=== PATIENT | male | born 1950 | race Two or more races ===

== ENCOUNTER 2021-10-23 13:29 | Emergency (ER) | payer MEDICARE, MEDICAID, SELFPAY | END 2021-10-23 13:45 | disposition left against medical advice (07) | PROVIDERS: Emergency Provider Emergency Medicine; PCP Internal Medicine | DX: M79.642 Pain in left hand (principal) ==

== ENCOUNTER 2021-10-23 14:46 | Outpatient (REF) | payer MEDICARE, MEDICAID, SELFPAY ==
--- NOTE | ~2021-10-23 | XR_ITS ---
EXAMINATION: XR HAND, LEFT CLINICAL INFORMATION: Left hand pain COMPARISON: None TECHNIQUE: PA, lateral, and oblique views of the left hand. FINDINGS: No fracture or dislocation. Alignment is maintained. Joint spaces are maintained. Mild dorsal soft tissue swelling. Mild narrowing of the first carpometacarpal joint space with sclerosis. XR/XR hand LT 2V IMPRESSION: No acute osseous abnormality. Mild degenerative change, particularly at the first carpometacarpal joint.
== END 2021-10-23 14:47 | disposition home or self-care (01) ==
LOC: HO.HMGCX 14:46
PROVIDERS: Visit Provider Family Medicine
DX: M79.642 Pain in left hand (principal)
CPT/HCPCS: 73120

== ENCOUNTER 2022-03-27 10:00 | Outpatient (REF) | payer MEDICARE, MEDICAID, SELFPAY | END 2022-03-27 10:01 | disposition home or self-care (01) | LOC: HO.SH 10:00 | PROVIDERS: PCP Family Medicine; Visit Provider Family Medicine | DX: Z01.118 Encounter for examination of ears and hearing with other abnormal findings (principal); H90.3 Sensorineural hearing loss, bilateral | CPT/HCPCS: 92557; 92567 ==

== ENCOUNTER 2022-04-10 09:50 | Outpatient (REF) | payer MEDICARE, MEDICAID, SELFPAY ==
--- NOTE | 2022-04-10 10:50 | MHC.AU.HA1 ---
Hearing Aid Evaluation Date of Visit: 04/10/22 Historical Information: Description of Hearing: Right- Normal from 250-2000 Hz, steeply sloping to moderately-severe by 3000 Hz, and rising to mild sensorineural hearing loss Left- Normal from 250-1500 Hz, steeply sloping to severe sensorineural hearing loss Summary: Patient was initially seen at our clinic on 03/27/2022 for an audiological evaluation. He was diagnosed with asymmetrical sensorineural hearing loss. He was seen by [facility] on 04/02/2022 and given medical clearance for hearing aids. He will also be getting an MRI. Hearing aid options were discussed. He reports that a main concern for him is being able to hear his . Hearing Aid Prescription: Based on the individual?s shared listening needs, communication environments, dexterity, desire for connectivity, and personal preferences, the following prescription for amplification has been made: Right ear: Make, Model, Color: Phonak Audeo P70-R, Black Battery Size: Rechargeable Top Frame Fitter/Slim Tube: 1M Left ear: Make, Model, Color: Phonak Audeo P70-R, Black Battery Size: Rechargeable Top Frame Fitter/Slim Tube: 1M Action Taken/Action Needed: Hearing Instrument Fitting to be scheduled when materials arrive Primary Diagnosis: H90.3 Bilateral Sensorineural Hearing Loss Signature: Provider: Gabriel Angeles, [facility]
== END 2022-04-10 09:51 | disposition home or self-care (01) ==
LOC: HO.HAP 09:50
DX: Z46.1 Encounter for fitting and adjustment of hearing aid (principal); H90.3 Sensorineural hearing loss, bilateral
CPT/HCPCS: 92591

== ENCOUNTER 2022-05-05 09:44 | Outpatient (REF) | payer MEDICARE, MEDICAID, SELFPAY | END 2022-05-05 09:45 | disposition home or self-care (01) | LOC: HO.HAP 09:44 | PROVIDERS: Visit Provider Otolaryngology | DX: Z46.1 Encounter for fitting and adjustment of hearing aid (principal); H90.3 Sensorineural hearing loss, bilateral | CPT/HCPCS: V5011; V5020; V5160; V5261 ==

== ENCOUNTER 2022-06-05 09:33 | Outpatient (REF) | payer MEDICARE, MEDICAID, SELFPAY | END 2022-06-05 09:34 | disposition home or self-care (01) | LOC: HO.HAP 09:33 | PROVIDERS: Visit Provider Otolaryngology | DX: Z46.1 Encounter for fitting and adjustment of hearing aid (principal); H90.3 Sensorineural hearing loss, bilateral | CPT/HCPCS: V5275 ==

== ENCOUNTER 2022-07-10 08:18 | Outpatient (REF) | payer MEDICARE, MEDICAID, SELFPAY ==
--- NOTE | 2022-07-10 08:58 | MHC.AU.HFU ---
Hearing Instrument Follow-Up- Binaural Date of Visit: 07/10/22 Right Ear: Phonak Nielseo L70-R, SN: [id number], Black Repair Warranty: 07/08/2025 Loss and Damage Warranty: 07/08/2025 Service Plan: 05/06/2023 Battery Size: Rechargeable Medical Csr: 1M Type of Mold: Cshell w/canal lock, SN: [id number], warranty: 09/14/2022 Type of Wax Guard: Cerustop Dispensed By: [facility] Date of Fittin05/05/2022 Left Ear: Phonak Nielseo L70-R, SN: [id number], Black Repair Warranty: 07/08/2025 Loss and Damage Warranty: 07/08/2025 Service Plan: 05/05/2022 Battery Size: Rechargeable Medical Csr: 1M Type of Mold: Cshell w/canal lock, SN: [id number], warranty: 09/14/2022 Type of Wax Guard: Cerustop Dispensed By: [facility] Date of Fittin05/05/2022 Follow-Up Summary: The patient is here today for a cshell mold fitting. New cshells fit well bilaterally. I reprogrammed the acoustic settings in [employer] to reflect the new cshells and re-ran the feedback evs manager. No feedback noted. The patient reported a comfortable fit and good volume bilaterally. We reviewed cleaning and hearing aid care with the new cshells. I re-paired the hearing aids to the patient's Android phone as he was having trouble pairing them. It worked fine in office. Additional follow-up as needed or in 1 year for maintenance. Billed to insurance today. Diagnosis Code(s): Primary Diagnosis: H90.3 Bilateral Sensorineural Hearing Loss Signature: Provider: Niels Carvalho, CCC-A
== END 2022-07-10 08:19 | disposition home or self-care (01) ==
LOC: HO.HAP 08:18
PROVIDERS: Visit Provider Family Medicine
DX: Z46.1 Encounter for fitting and adjustment of hearing aid (principal); H90.3 Sensorineural hearing loss, bilateral
CPT/HCPCS: V5264

== ENCOUNTER 2024-03-23 08:05 | Outpatient (REF) | payer MEDICARE, SELFPAY ==
--- NOTE | ~2024-03-23 | XR_ITS ---
CLINICAL HISTORY: RT HIP PAIN 2 view, pelvis and right hip Comparison: None Findings: The bones are intact. No significant arthritic change. The soft tissues are unremarkable. There is regional arterial calcification. IMPRESSION: No acute findings. This document has been electronically signed by: Pito Thompson MD on 03/26/2024 08:49:25
--- NOTE | ~2024-03-23 | XR_ITS ---
CLINICAL HISTORY: LOWER BACK PAIN 3 views lumbar spine Comparison: DX - XR LUMBAR SPINE 2-3V - 03/23/2024 02:42 PM EST Findings: Normal alignment. No acute fractures or dislocation. Multiple level degenerative disc and facet change. IMPRESSION: No acute findings. This document has been electronically signed by: Pito Thompson MD on 03/26/2024 08:51:06
--- NOTE | ~2024-03-23 | XR_ITS ---
CLINICAL HISTORY: RT KNEE PAIN 3 view right knee Comparison: None Findings: Bones intact. No dislocations. Components of the prosthesis are intact and well-positioned. No significant loss of joint space, osteophytes, or erosions. No joint effusion. No other radiopaque foreign body. IMPRESSION: 1. No acute findings. This document has been electronically signed by: Pito Thompson MD on 03/26/2024 08:49:34
== END 2024-03-23 08:06 | disposition home or self-care (01) ==
LOC: HO.HOSX 08:05
PROVIDERS: Visit Provider Orthopaedic Surgery
DX: M25.561 Pain in right knee (principal); M25.551 Pain in right hip; M54.50 Low back pain, unspecified; M79.604 Pain in right leg
CPT/HCPCS: 72100; 73502; 73562; 99202

== ENCOUNTER 2024-03-23 14:24 | Outpatient (AMB) | payer MEDICARE, SELFPAY ==
--- NOTE | 2024-03-23 14:40 | MHC.OFFVIS ---
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 The patient did undergo right total knee replacement surgery at [facility] approximately 6 years ago. He denies any fevers or chills. He has tried Tylenol and anti-inflammatory medicines which gave him minimal relief. He has also done physical therapy which aggravated his pain. He reports intermittent weakness in his right leg. The patient states that he did undergo surgery on his neck approximately 10 years ago. He has taken oxycodone as well which gives him minimal relief. Dog Warden Required: No Allergies almond Allergy (Severe, Unverified 03/23/24 14:41) SWELLING nut - unspecified [nut] Allergy (Severe, Unverified 03/23/24 14:41) SWELLING peanut [Peanut] Allergy (Severe, Unverified 03/23/24 14:41) SWELLING walnut Allergy (Severe, Unverified 03/23/24 14:41) SWELLING strawberry [[place]] Allergy (Mild, Unverified 03/23/24 14:41) UNKNOWN apple [Apple] Allergy (Unknown, Unverified 03/23/24 14:41) UNKNOWN Medication List - Last Reconciled 03/23/24 by Francisco Javier Freeman MD amlodipine 5 mg PO DAILY diclofenac sodium 1% topical omeprazole 20 mg PO DAILY oxybutynin chloride ER 10 mg PO DAILY oxycodone-acetaminophen 5-325 mg tabs [facility] Social History (Updated 03/23/24 @ 15:01 by MENDEZ Locke) Patient Tobacco Use Status: Former Tobacco user Current occupational status: retired Current occupation: rt handed Physical Exam Vital Signs: BMI result Body Mass Index 37.2 Const Other: Well-nourished well-developed very friendly male awake alert and oriented x3 in no acute distress Back/Spine/Pelvis Other: Low back examination shows right-sided paraspinal muscle tenderness, pain with range of motion, positive straight leg raise test on the right at 70 degrees, 4/5 strength with testing of his right hip flexors and knee extensors when compared to 5/5 strength on his left side Extrem Other: Right knee examination shows that the surgical incision is well healed, no erythema, full active extension and flexion to 120 degrees, his patella tracks well Right hip examination shows full range motion when compared to his left hip, no tenderness over his bursa Results Reviewed Results Reviewed: X-rays of the patient's right knee show a total knee arthroplasty in good position with no signs of loosening, no acute bony abnormalities X-rays of the patient's right hip show mild diffuse joint space narrowing, no acute bony abnormalities X-rays of the patient's lumbar spine show diffuse degenerative disc disease, no acute bony abnormalities Assessment & Plan Assessment & Plan (1) Low back pain radiating to right leg: Code(s): M54.50 - Low back pain, unspecified; M79.604 - Pain in right leg Category: Medical (2) Right knee pain: Code(s): M25.561 - Pain in right knee Category: Medical (3) Low back pain: Code(s): M54.50 - Low back pain, unspecified Category: Medical (4) Right hip pain: Code(s): M25.551 - Pain in right hip Category: Medical Plan Mr. Cazares presents with low back pain which radiates down his right leg as well as associated right leg weakness possibly due to lumbar stenosis or a disc herniation. Thus, I will send the patient for an MRI of his lumbar spine for further evaluation. I will contact him by phone once the MRI results are available. I will also arrange for him to have a follow-up appointment with Dr. Medeiros from our pain management department to see if he is a candidate for a nerve stimulation procedure to help with his right knee pain. The patient will follow-up as instructed. Feel free to call me at any time should questions regarding his orthopedic management arise. I spent 20 minutes in reviewing the patient's records and imaging studies, seeing the patient and documenting in the medical record. Orders: Orders XR hip RT min 2V 03/23/24 M25.551 - Pain in right hip XR lumbar spine 2-3V 03/23/24 M54.50 - Low back pain, unspecified MR lumbar spine wo con 03/23/24 M54.50 - Low back pain, unspecified, M79.604 - Pain in right leg XR knee RT 3V 03/23/24 M25.561 - Pain in right knee Referrals Pain Management Referral M25.561 - Pain in right knee Coding Level of Care Code New Pt Level 3 (99652) Complex EM visit Add On G2211 Diagnoses Low back pain radiating to right leg M54.50; M79.604 Right knee pain M25.561 Low back pain M54.50 Right hip pain M25.551
[2024-03-23 14:59] VITALS: BMI 37.2
--- OUTSIDE RECORDS SUMMARY | 2024-03-23 16:46 | XMS_ITS | Clinical Summary ---
Author Organization [facility] Address [address] [place] [address] Care Team Providers Care Research Agricultural Engineer Name Role Phone Sofiya Seaman MD Primary Care Provider [phone] Allergies Active Allergy Reactions Criticality Noted Date Comments Fruit 03/15/2014 Nuts 03/15/2014 Medications Medication Sig Dispensed Refills Start Date End Date Status oxyCODONE-acetaminoph en (PERCOCET) 5-325 MG per tablet TK 1 TO 2 TS PO Q 8 H PRN P 0 02/16/2019 Active oxybutynin (DITROPAN XL) 15 MG 24 hr tablet 0 03/04/2019 Active aspirin EC 81 MG tablet Take 81 mg by mouth daily. 0 Active amLODIPine (NORVASC) tablet 5 mg Take 5 mg by mouth. 0 09/01/2019 Acti ve Aspirin Buf,AxOjxy-VxZhjz-TcI , 81 MG TABS Take 81 mg by mouth. 0 Active diazePAM (VALIUM) tablet 5 mg TK 1 T PO HS THE NIGHT BEFORE PROCEDURE AND 1 T 1 HOUR PRIOR TO PROCEDURE 0 08/29/2019 Active naproxen (NAPROSYN) 500 MG tablet Take 500 mg by mouth. 0 10/14/2018 Active omeprazole (PriLOSEC) 20 MG capsule Take 20 mg by mouth. 0 06/07/2019 Active Active Problems Problem Noted Date Diagnosed Date Labral tear of shoulder, left, sequela 0 Traumatic complete tear of left rotator cuff Labral tear of shoulder, left, initial encounter 03/16/2019 Impingement syndrome of left shoulder 03/16/2019 Traumatic complete tear of left rotator cuff Family History Medical History Relation Name Comments Arthritis Mother Heart disease Sister Hypertension Sister Relation Name Status Comments Mother Sister Social History Tobacco Use Types Packs/Day Years Used Date Smoking Tobacco: Former Cigarettes 0 1962 - 03/02/1992 Smokeless Tobacco: Never Alcohol Use Standard Drinks/Week Comments No 0 (1 standard drink = 0.6 oz pur e alcohol) quit 03/02/1992 Sex and Gender Information Value Date Recorded Sex Assigned at Not on file Gender Identity Not on file Sexual Orientation Not on file Job Start Date Occupation Industry Not on file Not on file Not on file Last Filed Vital Signs Vital Sign Reading Time Taken Comments Blood Pressure - - Pulse - - Temperature - - Respiratory Rate - - Oxygen Saturation - - Inhaled Oxygen Concentration - - Weight 99.8 kg (220 lb) 04/04/2019 9:04 AM EST Height 160 cm (5' 3 ) 04/04/2019 9:04 AM EST Body Mass Index 38.97 04/04/2019 9:04 AM EST Plan of Treatment Health Maintenance Due Date Last Done Comments Hepatitis C Screening 1950 COVID-19 Vaccine (#1) 02/10/1951 Depression Screening 1962 BMI Counseling 1968 Preventative Health Evaluation 1968 Colon Cancer Screening (Colonoscopy) 08/12/1995 Shingrix-Zoster Vaccine (1 of 2) 2000 Fall Risk Assessment 08/12/2015 DTap / Tdap / Td (2 - Td or Tdap) 05/13/2020 05/13/2010 Influenza Vaccine (#1) 2023 0, 12/21/2018, 01/05/2018, Additional history exists RSV Adult > 60+ Yrs or (1 - 1-dose 75+ series) 2025 Pneumococcal Vaccine Completed 03/08/2019, 09/10/2016, 03/15/2013 Hepatitis B Vaccines Aged Out No long er eligible based on patient's age to complete this topic RSV Ped < 20 months Aged Out No longe r eligible based on patient's age to complete this topic Care Teams Research Agricultural Engineer Relationship Specialty Start Date End Date Sofiya Seaman MD PCP - General Internal Medicine 03/09/19
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
== END 2024-03-23 15:18 | disposition home or self-care (01) ==
PROVIDERS: Visit Provider Orthopaedic Surgery
DX: M54.50 Low back pain, unspecified (principal); M79.604 Pain in right leg; M25.561 Pain in right knee; M25.551 Pain in right hip
CPT/HCPCS: 99203; G2211

== ENCOUNTER → 2024-03-28 07:20 | Outpatient (BNV) | payer MEDICARE, SELFPAY | PROVIDERS: PCP Family Medicine; Visit Provider Radiology Diagnostic Radiology | DX: M54.50 Low back pain, unspecified (principal) | CPT/HCPCS: 72148 ==

== ENCOUNTER 2024-03-28 07:23 | Outpatient (REF) | payer MEDICARE, SELFPAY ==
--- NOTE | ~2024-03-28 | MR_ITS ---
EXAMINATION: MR LUMBAR SPINE WITHOUT IV CONTRAST History: M54.50 - Low back pain, unspecified Technique: Sagittal T1, T2 and STIR, and axial T1 and T2 weighted images of the lumbar spine were obtained per departmental protocol. Comparison: Correlation is made with plain films of the lumbar spine dated 03/23/2024. Findings: The vertebral bodies maintain normal height, alignment, and marrow signal intensity. There is mild degenerative disc disease of the upper lumbar spine with disc desiccation, loss of disc height, and anterior osteophyte formation. At T12-L1,there is no evidence of disc herniation, central spinal stenosis, or neural foraminal narrowing. At L1-2, there is a mild disc bulge. There is no central spinal or neural foraminal stenosis. At L2-3, there is a mild disc bulge. There is mild facet and ligamentum flavum hypertrophy without central spinal or neural foraminal stenosis. At L3-4, there is a mild disc bulge which is asymmetric to the left. There is facet and ligamentum flavum hypertrophy causing narrowing of the inferior recess of the left neural foramen. There is no central spinal or right neural foraminal stenosis. At L4-5, there is a mild diffuse disc bulge. There is mild facet osteoarthritis causing bilateral neural foraminal stenosis, left greater than right. At L5-S1, there is facet osteoarthritis causing bilateral neural foraminal stenosis, right greater than left. The conus terminates at the T12-L1 level and demonstrates normal signal intensity. The visualized paraspinal soft tissues are unremarkable. MR/MR lumbar spine wo con Impression: Degenerative changes of the lumbar spine as described. Electronically signed by: Amarjit Neal MD 03/28/2024 11:24 AM BESSY
--- OUTSIDE RECORDS SUMMARY | 2024-03-28 07:25 | XMS_ITS | Clinical Summary ---
Author Organization [place] [id number] [facility] Address [address] [place] [id number] Phone Care Team Providers Care Peeled Potato Inspector Name Role Phone Lorie Samuel MD Primary Care Pr ovider Allergies Active Allergy Reactions Criticality Noted Date Comments Nut - Unspecified 03/15/2014 Other 03/15/2014 Medications Medication Sig Dispensed Refills Start Date End Date Status fluticasone propionate (FLONASE) 50 mcg/actuation nasal spray 1 [place] by Nasal route 2 times daily., Disp-48 [...] Max Daily Amount: 2 tablets 56 tablet 03/24/2024 5 Active oxyCODONE-acetamino phen (PERCOCET) 5-325 mg per tablet Take 1 tablet by mouth every 12 (twelve) hours for 28 days. DX CODE: M47.816 -Partial fill okay upon patient request Max Daily Amount: 2 tablets 56 tablet 02/05/2024 5 Discontinue d(Reorder) oxyCODONE-acetamino phen (PERCOCET) 5-325 mg per tablet Take 1 tablet by mouth every 12 (twelve) hours for 28 days. DX CODE: M47.816 -Partial fill okay upon patient request Max Daily Amount: 2 tablets 56 tablet 03/11/2024 5 Discontinue d(Reorder) Active Problems Problem Noted Date Diagnosed Date Osteoarthritis of thoracic spine with myelopathy 11/11/2023 Dyslipidemia 11/04/2023 Chronic rhinitis 11/04/2023 Traumatic brachial plexopathy 07/10/2023 Overview (12/14/2023): Last Assessment & Plan: Mr. Cazares describes a fall from a ladder in 2018 resulting in an anterior dislocation of the left shoulder that was manually reduced. Since that time he has had pain, numbness, and tingling in the left shoulder, into the triceps, ulnar forearm and involving the whole left hand. 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 His MRI of the cervical spine from [facility] on May 26, 2023 reveals a [...] An EMG and nerve conduction study from [facility] in 2019 revealed evidence of a left brachial plexus [...] not using it Supply letter given to [facility] to fax. Return to clinic [...] HERNIA REPAIR/ING UPPER GASTROINTESTINAL ENDOSCOPY 09/07/2008 PROCEDURE: [place] UPPER GI ENDOSCOPY PERFORMED; COMMENT: [facility]; esophagus normal, gastritis. Biopsy for rapid tissue urease testing positive for H. pylori that was subsequently treated. UPPER GASTROINTESTINAL ENDOSCOPY 09/27/2009 PROCEDURE: [place] UPPER GI ENDOSCOPY PERFORMED; COMMENT: [facility]; esophagus normal, biopsy of gastritis for rapid tissue urease testing. UPPER GASTROINTESTINAL ENDOSCOPY 05/18/2012 PROCEDURE: [place] UPPER GI ENDOSCOPY PERFORMED; COMMENT: [facility], esophagus normal, patchy erythema of stomach biopsied, rapid tissue urease testing performed. TOTAL KNEE ARTHROPLASTY PROCEDURE: [place] ARTHRP KNE CONDYLE&PLATU MEDIAL&LAT COMPARTMENTS; COMMENT: right COLONOSCOPY 06/13/2020 N/A PROCEDURE: HISTORICAL COLONOSCOPY; COMMENT: 3 cm sessile mass lesion in the cecum adjacent to the appendix, pathology: SHOULDER SURGERY 08/2020 Left PROCEDURE: HISTORICAL SHOULDER SURGERY OTHER SURGICAL HISTORY 04/18/2021 Right PROCEDURE: ---- OTHER ----; COMMENT: colectomy OTHER SURGICAL HISTORY 06/19/2022 PROCEDURE: [place] ANES LWR ABD VENTRAL & INCISIONAL HERNIA [...] Upcoming Encounters Date Type Department Care Team (Late st Contact Info) Description 03/28/2024 9:00 AM EST Office Visit Pulmonolgy - [place] [address] [place] [id number] Susan Castillo MD [address] [facility] [address] [place] [address] 04/04/2024 5:00 PM EST Office Visit Adult Medicine [facility] [address] [place] [address] Lorie Samuel MD [address] [place] [id number] Health Maintenance Due Date Last Done Comments Zoster Vaccines (1 of 2) 2000 RSV Immunization Patients 60+ Years Old (1 - Risk 60-74 years 1-dose series) 2010 Medicare Annual Wellness Visit 02/06/2022 Social Influencers of Health Screening 02/06/2022 COVID-19 [...] other levels as detailed. 8 [place] [facility] MRI PROCEDURES * Annual BMP Blood Test (11/05/2023) Annual BMP Blood Test Abstracted Historical Provider MD NATALIA CENTENO E * Lipid panel (11/05/2023) [facility] LDL/HDL Ratio 3 0 - 4 Triglycerides 68 0 - 150 mg/dL Cholesterol 111 0 - 200 mg/dL HDL 43 40 mg/dL LDL Cholesterol 55 0 - 100 mg/dL Blood Venous blood specimen / Unknown Historical Provider LAB BLOOD ORDERAB LES * Falls Risk Assessment (05/07/2023) [facility] Falls Risk Assessment Abstracted Historical Provider [facility] * Depression Screening (05/07/2023) [facility] Depression Screening Abstracted [facility] Provider [facility] [employer] [facility] * Abdominal Aortic Aneurysm Screen (07/23/2021) [facility] Abdominal Aortic Aneurysm (AAA) Screening Abstracted Anatomical Region Laterality Modality Other Historical Provider [facility] * Colonoscopy (05/01/2021) [facility] Colonoscopy No Interpretation , Abstracted Anatomical Region Laterality Modality Other [facility] Provider [facility] * Hepatitis C Screening (03/16/2014) [facility] Hepatitis C Screening Abstracted Historical Provider [facility] from Last 3 Months or Most Recently Relevant to Health Maintenance Care Teams Peeled Potato Inspector Relationship Specialty Start Date End Date Lorie Samuel MD [address], [place] PCP - General Internal Medicine 12/02/21"
--- OUTSIDE RECORDS SUMMARY | 2024-03-28 07:25 | XMS_ITS | Clinical Summary ---
[facility] Organization [facility] Address [address] [place] [address] Care Team Providers Care Inside Parts Sales Name Role Phone Sofiya Seaman MD Primary Care Provider [phone] Allergies Active Allergy Reactions Criticality Noted Date [...] by mouth. 0 09/01/2019 Acti ve Aspirin Buf,[id number] , 81 MG TABS Take 81 mg [...] age to complete this topic Care Teams Inside Parts Sales Relationship Specialty Start Date End Date Sofiya Seaman MD PCP - General Internal Medicine 03/09/19
== END 2024-03-28 07:24 | disposition home or self-care (01) ==
LOC: HO.MRI 07:23
PROVIDERS: PCP Family Medicine; Visit Provider Orthopaedic Surgery
DX: M54.50 Low back pain, unspecified (principal); M79.604 Pain in right leg
CPT/HCPCS: 72148

== ENCOUNTER 2024-06-03 10:04 | Outpatient (AMB) | payer MEDICARE, SELFPAY ==
--- NOTE | 2024-06-03 10:18 | MHC.OFFVIS ---
Vital Signs 06/03/24 10:21 Height 5 ft 3 in Weight 216 lb BMI 38.3 BP 129/70 Blood Pressure Location Lt brachial Position Sitting Respiration 16 Pulse 57 Pulse Source Pulse Oximeter Pulse Oximetry (%) 96 Oxygen Delivery Method Room Air Intake Visit Reasons: Right Leg/Knee Pain Sample Sewer Required: No Allergies almond Allergy (Severe, Verified 06/03/24 10:22) SWELLING nut - unspecified [nut] Allergy (Severe, Verified 06/03/24 10:22) SWELLING peanut [Peanut] Allergy (Severe, Verified 06/03/24 10:22) SWELLING walnut Allergy (Severe, Verified 06/03/24 10:22) SWELLING strawberry [[place]] Allergy (Mild, Verified 06/03/24 10:22) UNKNOWN apple [Apple] Allergy (Unknown, Verified 06/03/24 10:22) UNKNOWN Medication List - Last Reconciled 06/03/24 by Mercedes Young LPN amlodipine 2.5 mg PO DAILY aspirin (Adult Aspirin Regimen) 81 mg PO DAILY atorvastatin 10 mg PO DAILY diclofenac sodium 1% topical omeprazole 20 mg PO DAILY oxybutynin chloride ER 10 mg PO DAILY oxycodone-acetaminophen 5-325 mg tabs PO tamsulosin 0.8 mg PO DAILY HPI HPI Right Leg/Knee Pain: Details: History of Present Illness The patient is a 73-year-old male presenting with chronic low back pain and post-knee arthroplasty pain in the right knee. The low back pain began years ago while he was employed and is characterized by a stabbing, eating sensation, with intensity often reaching 8-9/10. The pain tends to worsen in the afternoons but can be alleviated to some extent at rest. Past MRI findings indicate degenerative changes across several lumbar levels, primarily at L3-4 on the left and L1-2, 4-5 on the right, and L5-S1 on the left. He also encounters persistent right knee pain post-total arthroplasty, described as dull and aching, which is accentuated by physical activity. The knee sensation is concerning to the patient, feeling as though it might collapse under strain. Initial conservative treatments have been ineffective. 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 He is currently retired, practices moderate caffeine consumption, and relies on oxycodone for pain management. His pain levels disrupt sleep and daily routines, necessitating further intervention. Pain Description - Onset: Chronic low back pain began years ago; right knee pain commenced post-arthroplasty six years ago. - Quality & Character: Stabbing, eating sensation in the low back; dull, ever-present ache in the right knee. - Primary Location: Low back; right knee. - Radiation: Sciatica symptoms radiating down the legs. - Severity: Low back pain intensity 8-9/10, reduced to 5-6/10 with relaxation; right knee pain dull and consistent. - Exacerbating Factors: Low back pain worsens in the afternoons; knee pain worsens with activity. - Alleviating Factors: Back pain improves with rest. - Daily Interference: Impacts sleep quality and daily activities. Physical Exam - Musculoskeletal- No tenderness noted upon palpation around the right knee. Results - Imaging: MRI indicating multilevel degenerative changes with facet hypertrophy, pronounced at L3-4 left, L1-2 right, 4-5 right, and L5-S1 left. Pain Management - Affect: Pain disrupts sleep and daily activities. - Analgesia: Oxycodone 5-325 mg every two hours; pain intensity ranges 8-9/10, better with rest. - Adverse Effects: Not explicitly noted. - Activities of Daily Living: Pain inhibits normal sleep and daily functioning. 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 [facility] Social History (Updated 03/23/24 @ 15:01 by MENDEZ Locke) Patient Tobacco Use Status: Former Tobacco user Current occupational status: retired Current occupation: rt handed Physical Exam Vital Signs: Last Vital Signs Pulse 57 06/03/24 10:21 Resp 16 06/03/24 10:21 BP 129/70 06/03/24 10:21 Pulse Ox 96 06/03/24 10:21 Oxygen Delivery Method Room Air 06/03/24 10:21 BMI result Body Mass Index 38.3 Assessment & Plan Assessment & Plan (1) Chronic knee pain after total replacement of right knee joint: Code(s): M25.561 - Pain in right knee; G89.29 - Other chronic pain; Z96.651 - Presence of right artificial knee joint Category: Medical Plan Plan The management plan includes requesting authorization for a temporary saphenous nerve stimulator to alleviate chronic right knee pain following total knee arthroplasty, which has been recalcitrant to conservative measures. Potential benefits include substantial pain reduction with a procedure success rate of approximately 70%, with effects lasting 8 to 10 months. If insurance authorization is secured, the nerve stimulator will be placed and left for two months, providing a viable solution given the metallic nature of the knee replacement which limits other interventions. Consideration may be given to apply similar methods to address the patient's chronic low back pain in the future should this initial treatment prove efficacious. Patient was informed and verbally consented to the use of an ambient scribe for clinic note documentation during this visit. Discussion Notes During the visit, I discussed with the patient the chronic nature of his right knee pain post-arthroplasty and the limited treatment options due to the metallic components. I introduced and thoroughly explained the saphenous nerve stimulator, highlighting its potential relief for knee pain with a 70% success rate. I informed the patient that while we would begin by addressing his knee pain, similar options might be available for his chronic low back pain should the knee intervention prove beneficial. We reviewed risks, benefits, and alternatives associated with the procedure, emphasizing the importance of securing insurance approval. The patient agreed to proceed and was informed to expect follow-up contact regarding authorization. Patient Instructions - Await further contact regarding insurance approval for the nerve stimulator procedure. - Limit activities that exacerbate knee pain. - Continue current medication regimen as instructed. - Report any significant changes in pain intensity or new symptoms promptly. - Follow care instructions for the nerve stimulator once placed, especially avoiding pools. - Contact the office with any questions or concerns regarding the procedure or insurance process. Coding Level of Care Code New Pt Level 4 (80459) Diagnoses Chronic knee pain after total replacement of right knee joint M25.561; G89.29; Z96.651
[2024-06-03 10:21] VITALS: BP 129/70; PULSE 57; RESP 16; O2SAT 96; BMI 38.3
--- OUTSIDE RECORDS SUMMARY | 2024-06-03 11:23 | XMS_ITS | Clinical Summary ---
Author Organization [facility] Address [address] [place] [address] Care Team Providers Care Ambulatory Service Representative Name Role Phone Sofiya Seaman MD Primary Care Provider [phone] Allergies Active Allergy Reactions Criticality Noted Date [...] by mouth. 0 09/01/2019 Acti ve Aspirin Buf,[id number] , 81 MG TABS Take 81 mg [...] age to complete this topic Care Teams Ambulatory Service Representative Relationship Specialty Start Date End Date Sofiya Seaman MD PCP - General Internal Medicine 03/09/19
--- OUTSIDE RECORDS SUMMARY | 2024-06-03 11:23 | XMS_ITS | Clinical Summary ---
Author Organization [facility] [address] [place] [address] [place] [phone] Phone Care Team Providers Care Firmware Engineer Name Role Phone Lorie Samuel MD Primary Care Pr ovider Allergies Active Allergy Reactions Criticality Noted Date Comments Fruit Extracts 03/15/2014 Nut - Unspecified 03/15/2014 Nutritional Supplement-Fiber 025 Other 03/15/2014 [place] 05/04/2024 Pineapple 03/28/2024 [place] 03/28/2024 [place] 03/28/2024 Medications fluticasone propionate (FLONASE) 50 mcg/actuation nasal spray 1 [place] by Nasal route 2 times daily., Disp-48 g, R-1, Normal Patient requests 90 days supply 11/04/19 24 Active aspirin 81 mg EC tablet Take 1 tablet (81 mg total) by mouth. 07/21/19 20 Active omeprazole (PriLOSEC) [address] capsule TAKE 1 CAPSULE BY MOUTH DAILY WITH BREAKFAST 06/07/19 20 Active meloxicam (MOBIC) 15 mg tablet Take 1 Tablet by mouth daily as needed for Pain for up to 30 days Active medical supply, miscellaneous (MISCELLANEOUS MEDICAL SUPPLY MISC) CPAP Historical (HISTORICAL CPAP) Inhale into the lungs. [facility]-pressure 6-12, Active oxyBUTYnin XL (DITROPAN-XL) 10 mg 24 hr tablet TAKE 1 TABLET BY MOUTH DAILY 90 tablet 1 02/02/20 24 Active atorvastatin (LIPITOR) 10 mg tabletIndications :Cerebral microvascular disease,Dyslipide sruthi,Atheroscleros is of both carotid arteries Take 1 tablet (10 mg total) by mouth at bedtime. 90 each 1 04/04/19 25 025 Active amLODIPine (NORVASC) 2.5 mg tabletIndications :HTN (hypertension), benign Take 1 tablet (2.5 mg total) by mouth 1 (one) time each day. Take 1 Tablet by mouth daily for 180 days 90 each 1 04/04/19 25 025 Active tamsulosin (FLOMAX) 0.4 mg 24 hr capsule Take 2 capsules (0.8 mg total) by mouth at bedtime. 04/03/19 25 Active oxyCODONE-acetami nophen (PERCOCET) 5-325 mg per tablet Take 1 tablet by mouth every 12 (twelve) hours for 28 days. DX CODE: M47.816 -Partial fill okay upon patient request Max Daily Amount: 2 tablets 56 tablet 05/25/19 25 025 Active oxyCODONE-acetami nophen (PERCOCET) 5-325 mg per tablet Take 1 tablet by mouth every 12 (twelve) hours for 28 days. DX CODE: M47.816 -Partial fill okay upon patient request Max Daily Amount: 2 tablets 56 tablet 04/26/19 25 025 Discontinu ed(Reorder ) valACYclovir (VALTREX) 1 gram tabletIndications :Herpes simplex infection of penis Take 1 tablet (1,000 mg total) by mouth 2 (two) times a day for 10 days. 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 Will update labs Orders: atorvastatin (LIPITOR) 10 mg tablet; Take 1 tablet (10 mg total) by mouth at bedtime. Comprehensive metabolic panel; Future CBC and differential; Future Lipid panel with reflex to direct LDL; Future Chronic rhinitis 11/04/2023 Traumatic brachial plexopathy 07/10/2023 [...] left hand. He has mild left hand entertainer & comic weakness and perhaps trace weakness in the left triceps but otherwise his motor exam is within normal limits. His MRI of the cervical spine from [facility] on May 26, 2023 reveals a C6-7 [...] An EMG and nerve conduction study from [facility] in 2018 revealed evidence of a left [...] positional vertigo 11/05/2022 Cerebral microvascular disease 10/08/2022 Assessment & Plan (04/04/2024 6:09 PM EST): Continue atorvastatin Orders: atorvastatin (LIPITOR) 10 mg tablet; Take 1 tablet (10 mg total) by mouth at bedtime. Carotid atherosclerosis 10/08/2022 Assessment & Plan (04/04/2024 6:09 PM EST): Continue atorvastatin Orders: atorvastatin (LIPITOR) 10 mg tablet; Take 1 tablet (10 mg total) by mouth at bedtime. Prediabetes 10/08/2022 Assessment & Plan (04/04/2024 6:09 PM EST): Last A1c was 5.9. lifestyle counseling provided Orders: Hemoglobin A1c; Future Sinus bradycardia 03/06/2022 HTN (hypertension), benign 12/02/2021 Assessment & Plan (04/04/2024 6:09 PM EST): Well controlled. Continue amlodipine Orders: amLODIPine (NORVASC) 2.5 mg tablet; Take 1 tablet (2.5 mg total) by mouth 1 (one) time each day. Take 1 Tablet by mouth daily for 180 days Adenoma of colon 04/25/2021 Overview (12/14/2023): S/p colectomy S/P laparoscopic colectomy 04/25/2021 Glenoid labrum tear 03/16/2019 Severe obesity (BMI 35.0-39.9) with comorbidity 08/17/2017 Assessment & Plan (04/04/2024 6:09 PM EST): lifestyle counseling provided Hypotonic bladder 01/17/2016 Overview (12/14/2023): Follows PVU [...] by him regarding stable pain med dose Assessment & Plan (04/04/2024 6:09 PM EST): Most recent MRI is as above Continue CSC for percocet 5-325mg BID . Due for UDS which is ordered. Reportedly Pending appt with [place] pain management. Heartburn 03/15/2014 Overview (12/14/2023): EGD in 2011 or 2012 Benign prostatic hyperplasia with nocturia 03/15 Urinary incontinence 03/15/2014 Overview (12/14/2023): Bladder hyperactivity; followed by urology Encounters Date Type Department Care Team Description 06/03/[address] [phone] Lyric Lagos [place] 06/02/2024 Telephone Adult [address] [phone] Lorie Samuel MD Letter for School/Work (Jury Duty) 05/25/2024 Telephone Infectious Disease [address] [phone] Daniela Hart MA 05/24/2024 1:30 PM EDT Consult Infectious Disease [address] [phone] Estephanie Gooden MD History of syphilis (Primary Dx); Dysuria 05/12/2024 Telephone Pulmonolgy [address] [phone] Daniela Hart MA 05/06/[address] [phone] Lorie Samuel MD 05/04/2024 9:45 AM EST Office Visit Adult [address] [phone] Lorie Samuel MD Herpes simplex infection of penis (Primary Dx); Dysuria; Colon cancer screening; Encounter for screening for HIV 05/03/2024 Nurse Triage Adult Medicine [address] [phone] Lorie Samuel MD Groin Rash 04/13/2024 9:00 AM EST [facility] [address] [phone] Chronic obstructive pulmonary disease, unspecified COPD type (CMS/HCC) 04/07/2024 3:21 PM EST - 04/07/2024 11:59 PM EST Hospital Encounter [facility] CT Scan [address] [place] [phone] Dyspnea, unspecified type Discharge Disposition: Home or Self Care 04/04/2024 5:00 PM EST Office Visit Adult [address] [phone] Lorie Samuel MD 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 Dx); Osteoarthritis of thoracic spine with myelopathy; Encounter for long-term (current) use of high-risk medication; HTN (hypertension), benign; Cerebral microvascular disease; Atherosclerosis of both carotid arteries; Dyslipidemia; Prediabetes; Severe obesity (BMI 35.0-39.9) with comorbidity (CMS/HCC); Other non-recurrent acute nonsuppurative otitis media of right ear; Systolic murmur 03/28/2024 9:00 AM EST [facility] [address] [phone] Susan Castillo MD MAC (obstructive sleep apnea) (Primary Dx); Chronic obstructive pulmonary disease, unspecified COPD type (CMS/HCC); Dyspnea, unspecified type; Other fatigue from Last 3 Months Immunizations Name Administration Dates Next Due Influenza Quadravalent, MDCK , 0.5ml, preservative free (Flucelvax) 6mo and older 01/05/2018 Influenza Quadravalent, MDCK , 0.5ml, with preservative (Flucelvax) 6mo and older 01/28/2017 Influenza trivalent, 0.5mL ( Fluad) 65yo and older 11/04/2023,11/05/2022,12/02/2021,12/14,11/21/2019,12/21/2018,12/06/2015 Influenza trivalent, 0.5mL ( Fluzone High-dose) 65yo and older 11/04/2023,11/05/2022,12/02/2021,12/14,11/21/2019,12/21/2018,12/06/2015 Influenza trivalent, 0.5mL, [...] HERNIA REPAIR/ING UPPER GASTROINTESTINAL ENDOSCOPY 09/07/2008 PROCEDURE: [place] UPPER GI ENDOSCOPY PERFORMED; COMMENT: [facility]; esophagus normal, gastritis. Biopsy for rapid tissue urease testing positive for H. pylori that was subsequently treated. UPPER GASTROINTESTINAL ENDOSCOPY 09/27/2009 PROCEDURE: [place] UPPER GI ENDOSCOPY PERFORMED; COMMENT: [facility]; esophagus normal, biopsy of gastritis for rapid tissue urease testing. UPPER GASTROINTESTINAL ENDOSCOPY 05/18/2012 PROCEDURE: [place] UPPER GI ENDOSCOPY PERFORMED; COMMENT: [facility], esophagus normal, patchy erythema of stomach biopsied, rapid tissue urease testing performed. TOTAL KNEE ARTHROPLASTY PROCEDURE: [place] ARTHRP KNE CONDYLE&PLATU MEDIAL&LAT COMPARTMENTS; COMMENT: right COLONOSCOPY 06/13/2020 N/A PROCEDURE: HISTORICAL COLONOSCOPY; COMMENT: 3 cm sessile mass lesion in the cecum adjacent to the appendix, pathology: SHOULDER SURGERY 08/2020 Left PROCEDURE: HISTORICAL SHOULDER SURGERY OTHER SURGICAL HISTORY 04/18/2021 Right PROCEDURE: ---- OTHER ----; COMMENT: colectomy OTHER SURGICAL HISTORY 06/19/2022 PROCEDURE: [place] ANES LWR ABD VENTRAL & INCISIONAL HERNIA [...] 0 1962 - 03/02/1992 Smokeless Tobacco: Never Tobacco Cessation:Counseling Given: Not Answered Alcohol Use Standard Drinks/Week Comments No 0 (1 standard drink = 0.6 oz pur e alcohol) Housing Instability Answer Date Recorde d Are you worried that in the next 2 months you may not have stable housing? No 05/04/2024 Food Access & Nutrition Answer Date Rec orded Do you have access to a vari ety of food including fruits and vegetables? Yes 05/04/2024 Access to Healthcare Answer Date Record ed Within the last 3 months, ho w many times did you visit the emergency department for your medical care? 0 05/04/2024 Health Literacy Answer Date Recorded How often do you need to hav e someone help you when you read instructions, pamphlets, or other written material from your doctor or pharmacy? Never 05/04/2024 Caregiver: How often do you need to have someone help you when you read instructions, pamphlets, or other written material from your doctor or pharmacy? Not on file 05/04/2024 Financial Risk Answer Date Recorded How hard is it for you to pa y for the very basics like food, housing, medical care, and air conditioning / heating? Not very hard 05/04/2024 Transportation Answer Date Recorded Has the lack of transportati on kept you from meetings, work, or from getting things needed for daily living? No Has the lack of transportati on kept you from medical appointments or from getting medications? No 05/04/2024 Social Isolation Answer Date Recorded How often do you feel lonely or isolated from th ose around you? Never 05/04/2024 Food Risk Answer Date Recorded Within the past 12 months we worried whether our food would run out before we got money to buy more. Never true 05/04/2024 Within the past 12 months th e food we bought just didn't last and we didn't have money to get more. Never true 05/04/2024 Dependent Care Answer Date Recorded Do you need help finding or paying for care for your loved ones. For example, child psychologist or elderly care for an older adult? No 05/04/2024 Education Answer Date Recorded Do you think completing more education or training, like finishing a GED, going to college, or learning a trade, would be helpful for you? No 05/04/2024 Employment and Income Answer Date Recor ded During the last four weeks, have you been actively looking for work? No 05/04/2024 Living Situation Answer Date Recorded What is your living situation? 0 05/04/2024 Sex and Gender Information Value Date Recorded Sex Assigned at Male 03/30/2024 9:19 AM EST Legal Sex Male 4:59 PM EST Gender Identity Male 03/30/2024 9:19 AM EST Sexual Orientation Straight 03/30/2024 9: 19 AM EST Obstetrics History Last Filed Vital Signs Vital Sign Reading Time Taken Comments Blood Pressure 133/78 05/24/2024 1:10 PM EDT Pulse 52 05/04/2024 9:53 AM EST Temperature 36.9 ??C (98.5 ??F) 05/24/2024 1:10 PM ED T Respiratory Rate 15 05/04/2024 9:53 AM EST Oxygen Saturation 98% 05/24/2024 1:10 PM EDT Inhaled Oxygen Concentration - - Weight 94.8 kg (209 lb) 05/24/2024 1:10 PM EDT Height 160 cm (5' 3 ) 05/04/2024 9:53 AM EST Body Mass Index 37.02 05/04/2024 9:53 AM EST Plan of Treatment Upcoming Encounters Date Type Department Care Team (Late st Contact Info) Description 06/15/2024 7:00 AM EDT Ancillary Procedure [facility] [address] [facility] [address] [place] [phone] 07/04/2024 8:00 AM EDT Office Visit Pulmonolgy - [place] [address] [phone] Susan Castillo MD [address] [phone] 07/04/2024 3:30 PM EDT Office Visit Adult Medicine [facility] [address] [place] [phone] Lorie Samuel MD [address] [place] [phone] 08/17/2024 12:30 PM EDT Appointment [facility] [address] [place] [phone] Hakeem Duran MD [address] [phone] Health Maintenance Due Date Last Done Comments Zoster Vaccines (1 of 2) 2000 Hepatitis B Vaccines (1 of 3 - Risk 3-dose series) 2010 RSV Immunization Adult Patients (1 - Risk 60-74 years 1-dose series) 2010 Medicare Annual Wellness Visit 02/06/2022 Colorectal Cancer Screening: Colonoscopy 05/01/2024 05/01/2021, 05/01/2021, 01/08/2021 Hypertension/CHF/CAD Annual BMP Blood Test 04/05/2025 04/05/2024, 11/05/2023, 11/05/2023 Depression Screening 05/04/2025 05/04/2024, 05/07/2023, 05/07/2023 Falls Risk Assessment 05/04/2025 05/04/2024 , 05/07/2023, 05/07/2023 Social Influencers of Health Screening 05/04/2025 05/04/2024 Cholesterol Screening (Lipid Panel) 04/05/2029 04/05/2024, 11/05/2023, 11/05/2023 DTaP,Tdap,and Td Vaccines (3 - Td or Tdap) 03/06/2032 03/06/2022, 05/13/2010 Pneumococcal Vaccine: 50+ Years Completed 03/08/2019, 09/10/2016, 03/15/2013, Additional history exists Abdominal Aortic Aneurysm (AAA) Screen Completed 07/23/2021, 07/23/2021 Influenza Vaccine Completed 11/04/2023, , 11/05/2022, Additional history exists Hepatitis C Screening Completed 05/04/2024 , 05/04/2024, 03/16/2014, Additional history exists COVID-19 Vaccine Discontinued HIB Vaccines Aged Out No longer eligi [...] patient's age to complete this topic Meningococcal B Vacine Aged Out No lo nger eligible based on patient's age to complete this topic RSV Immunization Patients Under 20 months Aged Out No longer eligible based on patient's age to complete this topic Varicella Vaccines Aged Out No longer eligible based on patient's age to complete this topic Procedures Procedure Name Priority Date/Time Associated Diagnosis Comments TRICHOMONAS, URINE Routine 05/24/2024 2: 05 PM EDT Dysuria CHLAMYDIA TRACHOMATIS AND NEISSERIA GONORRHOEAE PCR Routine 05/24/2024 2:05 PM EDT Dysuria HEPATITIS B SURFACE ANTIGEN WITH CONFIRMATION Routine 05/24/2024 2:03 PM EDT History of syphilis Dysuria HEPATITIS C VIRUS QUANTITATIVE PCR Routine 05/04/2024 3:30 PM EST Hepatitis C RAPID PLASMA REAGIN TITER Routine 05/04/2024 3:30 PM EST Herpes simplex infection of penis AST, ALT, BILIRUBIN ELR STATE REPORTABLES Routine 05/04/2024 3:30 PM EST Herpes simplex infection of penis RAPID PLASMA REAGIN WITH REFLEX TO TITER Routine 05/04/2024 3:30 PM EST Herpes simplex infection of penis HEPATITIS C ANTIBODY Routine 05/04/2024 3:30 PM EST Herpes simplex infection of penis HIV 1, 2 ANTIBODY, P24 ANTIGEN WITH REFLEX TO DIFFERENTIATION Routine 05/04/2024 3:30 PM EST Herpes simplex infection of penis TREPONEMA PALLIDUM ANTIBODY WITH REFLEX TO RPR AND PARTICLE AGGLUTINATION Routine 05/04/2024 3:30 PM EST Herpes simplex infection of penis HERPES SIMPLEX VIRUS 1 AND 2 PCR, QUALITATIVE Routine 05/04/2024 3:30 PM EST Herpes simplex infection of penis CULTURE URINE Routine 05/04/2024 10:23 AM EST Dysuria POC URINE NON-AUTO W/O MICRO Routine 05/04/2024 10:20 AM EST Dysuria PULMONARY FUNCTION TESTING Routine 04/13/2024 8:45 AM EST Chronic obstructive pulmonary disease, unspecified COPD type (CMS/HCC) CT CHEST WO CONTRAST Routine 04/07/2024 3:33 PM EST Dyspnea, unspecified type OPIATES CONFIRMATION, URINE Routine 04/05/2024 8:38 AM EST Encounter for long-term (current) use of high-risk medication CBC WITH AUTO DIFFERENTIAL Routine 04/05/2024 8:38 AM EST Dyslipidemia COMPREHENSIVE METABOLIC PANEL Routine 04/05/2024 8:38 AM EST Dyslipidemia CBC AND DIFFERENTIAL Routine 04/05/2024 8:38 AM EST Dyslipidemia LIPID PANEL WITH REFLEX TO DIRECT LDL Routine 04/05/2024 8:38 AM EST Dyslipidemia HEMOGLOBIN A1C Routine 04/05/2024 8:38 AM EST Prediabetes DRUG ABUSE SCREEN EXPANDED WITH REFLEX CONFIRMATION, URINE Routine 04/05/2024 8:38 AM EST Encounter for long-term (current) use of high-risk medication DEPRESSION SCREENING Routine 05/07/2023 FALLS RISK ASSESSMENT Routine 05/07/2023 ABDOMINAL AORTIC ANEURYSM SCRREN Routine 07/23/2021 COLONOSCOPY Routine 05/01/2021 from Last 3 Months or Most Recently Relevant to Health Maintenance Results * Trichomonas, urine (05/24/2024 2:05 PM EDT) Trichomonas, Urine None Seen None Seen 05/24/2024 4:23 PM EDT [facility] Urine Urine specimen obtained by clean catch procedure / Unknown Non-blood Collection / Unknown 05/24/2024 2:05 PM EDT 05/24/2024 2:44 PM EDT us Estephanie Gooden MD LAB MICROBIOLOGY - GENERAL ORDER JAYASHREE Final Result [facility] [address] [place] [address], [place] [phone] * Chlamydia trachomatis and Neisseria gonorrhoeae molecular study (05/24/2024 2:05 PM EDT) [facility] Neisseria gonorrhoeae PCR Negative Negative LAB MOLECULAR DIAGNOSTICS METHOD 05/25/2024 9:13 AM EDT [facility] Chlamydia trachomatis PCR Negative Negative LAB MOLECULAR DIAGNOSTICS METHOD 05/25/2024 9:13 AM EDT [facility] Swab Urine specimen obtained by clean catch procedure / Unknown Non-blood Collection / Unknown 05/24/2024 2:05 PM EDT 05/24/2024 2:43 PM EDT us Estephanie Gooden MD LAB MICROBIOLOGY - GENERAL ORDER JAYASHREE Final Result Performing Organization Address City/[facility]/ZIP Co de Phone Number [facility] [address] [place] [address], [place] [phone] * Hepatitis B surface antigen with reflex to confirmation (05/24/2024 2:03 PM EDT) [facility] Hepatitis B Surface Ag Negative Negative LAB CHEMISTRY METHOD 05/24/2024 3:54 PM EDT [facility] Blood Venous blood specimen / Unknown Venipuncture / Unknown 05/24/2024 2:03 PM EDT 05/24/2024 2:43 PM EDT Narrative [facility] - 05/24/2024 3:54 PM EDT Over the counter supplements containing high doses of biotin may interfere with this assay. ??If interference is suspected, patients shoud be retested after refraining from biotin supplements for 72 hours. us Estephanie Gooden MD LAB BLOOD ORDERABLES Final Resul t Performing Organization Address City/[facility]/ZIP Co de Phone Number [facility] [address] [place] [address], [place] [phone] * (ABNORMAL) Hepatitis C antibody (05/04/2024 3:30 PM EST) Pathologist [facility] Hepatitis C Antibody Positive (A) Negative LAB CHEMISTRY METHOD 05/04/2024 7:25 PM EST [facility] Comment:If confirmation of t his positive HCV Ab screening test is needed, please redraw and order HCV Viral Load. Note--> This test may not be added on due to different specimen requirements. Blood Venous blood specimen / Unknown Venipuncture / Unknown 05/04/2024 3:30 PM EST 05/04/2024 3:30 PM EST Lorie Samuel MD LAB BLOOD ORDERA BLES Final Result Performing Organization Address [facility]/ZIP Co de Phone Number [facility] [address] [place] [address], [place] [phone] * HIV 1,2 antibody, p24 antigen with reflex to differentiation (05/04/2024 3:30 PM EST) [facility] HIV Combo AB/AG Negative Negative LAB CHEMISTRY METHOD 05/04/2024 7:26 PM EST [facility] Blood Venous blood specimen / Unknown Venipuncture / Unknown 05/04/2024 3:30 PM EST 05/04/2024 3:30 PM EST Narrative [facility] - 05/04/2024 7:26 PM EST This assay is a 4th generation assay allowing for earlier detection of HIV infection by detecting the presence of the HIV-1 p24 antigen as well as the traditional antibodies to HIV type 1 (including group O) and type 2. ??Use of a 4th generation assay is the current CDC recommendation for HIV screening. Lorie Samuel MD LAB BLOOD ORDERA BLES Final Result Performing Organization Address [facility]/ZIP Co de Phone Number [facility] [address] [place] [address], [place] [phone] * AST, ALT, Bilirubin ELR state reportables (05/04/2024 3:30 PM EST) ALT (SGPT) 38 10 - 60 unit/L LAB CHEMISTRY METHOD 05/04/2024 7:49 PM EST [facility] AST (SGOT) 18 10 - 42 unit/L LAB CHEMISTRY METHOD 05/04/2024 7:49 PM EST [facility] Total Bilirubin 0.9 0.0 - 1.4 mg/dL LAB CHEMISTRY METHOD 05/04/2024 7:49 PM EST [facility] Platelets 184 K/mcL LAB HEMETOLOGY METHOD 05/04/2024 7:49 PM EST [facility] Blood Venous blood specimen / Unknown Venipuncture / Unknown 05/04/2024 3:30 PM EST 05/04/2024 3:30 PM EST Lorie Samuel MD LAB BLOOD ORDERA BLES Final Result [facility] [address] [place] [address], [place] [phone] * (ABNORMAL) Treponema pallidum antibody with reflex to RPR and particle agglutination (05/04/2024 3:30 PM EST) Pathologist [facility] T. Pallidum Antibodies Positive( A) Negative LAB CHEMISTRY METHOD 05/04/2024 6:57 PM EST [facility] Blood Venous blood specimen / Unknown Venipuncture / Unknown 05/04/2024 3:30 PM EST 05/04/2024 3:30 PM EST Lorie Samuel MD LAB BLOOD ORDERA BLES Final Result [facility] [address] [place] [address], [place] [phone] * (ABNORMAL) Rapid plasma reagin titer (05/04/2024 3:30 PM EST) [facility] Rapid Plasma Reagin Titer 1:1(A) Nonreactive 05/06/2024 9:19 AM EST [facility] Blood Venous blood specimen / Unknown Venipuncture / Unknown 05/04/2024 3:30 PM EST 05/04/2024 6:57 PM EST Lorie Samuel MD LAB BLOOD ORDERA BLES Final Result Performing Organization Address City/[facility]/ZIP Co de Phone Number [facility] [address] [place] [address], [place] [phone] * (ABNORMAL) Rapid plasma reagin with reflex to titer (05/04/2024 3:30 PM EST) [facility] RPR Reactive(A ) Nonreactive 05/06/2024 9:19 AM EST [facility] Blood Venous blood specimen / Unknown Venipuncture / Unknown 05/04/2024 3:30 PM EST 05/04/2024 6:57 PM EST Lorie Samuel MD LAB BLOOD ORDERA BLES Final Result [facility] [address] [place] [address], [place] [phone] * Herpes simplex virus 1 and 2 molecular study, qualitative (05/04/2024 3:30 PM EST) [facility] Specimen Source Blood, Venous 05/07/2024 11:35 AM EST [facility] Herpes simplex Virus I Not detected Not detected 05/07/2024 11:35 AM EST [facility] Herpes simplex Virus II Not detected Not detected 05/07/2024 11:35 AM EST [facility] Comment: This test utilizes a real-time polymerase chain reaction procedure to amplify and detect portions of the herpes simplex virus glycoprotein G genes. ??The analytical sensitivity of this assay is 50 copies/mL. A Not detected result does not rule out infection. This test uses commercial reagents that have not been approved or cleared by the FDA. ??The FDA has determined that such clearance or approval is not necessary. ??The performance characteristics of this procedure were determined by [facility]. This test is performed pursuant to a license agreement with [employer] Test performed at [facility], [address] [place], [place] ??[address] ? [phone] Melody Mansfield MD, PhD - Building Economist Blood Venous blood specimen / Unknown Venipuncture / Unknown 05/04/2024 3:30 PM EST 05/04/2024 3:30 PM EST Lorie Samuel MD LAB MICROBIOLOGY - GENERAL ORDERABLES Final Result [facility] [facility] [address] [place] [address] * Hepatitis C virus quantitative molecular study (05/04/2024 3:30 PM EST) [facility] Hepatitis C Quantitation HCV Not Detected IU/mL 05/10/2024 1:05 PM EDT [facility] Test Information: Note 05/10/2024 1:05 PM EDT [facility] Comment:The quantitative ran ge of this assay is 15 IU/mL to 100 million IU/mL. Blood Venous blood specimen / Unknown Venipuncture / Unknown 05/04/2024 3:30 PM EST 05/04/2024 3:30 PM EST Narrative [facility] - 05/10/2024 1:05 PM EDT Performed at: ??01 - [facility] [address] ??[id number] Nutrition Tech: Misti Holder MD, Phone: ??[phone] Lorie Samuel MD LAB BLOOD ORDERA BLES Final Result [facility] * Culture urine (05/04/2024 10:23 AM EST) Culture, Urine <10,000 CFU/mL gram positive cocci, insignificant count, no further workup 05/05/2024 12:36 PM EST [facility] Urine Urine specimen obtained by clean catch procedure / Unknown Non-blood Collection / Unknown 05/04/2024 10:23 AM EST 05/04/2024 11:22 AM EST Lorie Samuel MD LAB MICROBIOLOGY - GENERAL ORDERABLES Final Result Performing Organization Address [facility] Co de Phone Number [facility] [address] [place] [address], [place] [phone] * (ABNORMAL) POC Urine Non-Auto W/O Micro (05/04/2024 10:20 AM EST) GLUCOSE POC Negative Negative, Trace mg/dL Leukocytes UA POC Negative Negative Nitrite UA POC Negative Urobilinogen UA POC 0.2 E.U./dL mg/dL Protein UA POC Negative Negative PH UA POC 6 Blood UA POC 3+(A) Negative SPECIFIC GRAVITY POC 1.015 Ketones UA POC Negative Negative Bilirubin UA POC Negative Negative Urine Urine specimen obtained by clean catch procedure / Unknown 05/04/2024 10:20 AM EST Lorie Samuel MD POINT OF CARE TEST ENTER/EDIT ORDERABLES Final Result * Pulmonary function testing: Carbon Monoxide Diffusing Capacity, Nitrogen Wash Out, Spirometry with Bronchodilator, Vital Capacity Test (04/13/2024 8:45 AM EST) Felicia Jenkins MD - 04/13/2024 8:45 AM EST DATE OF SERVICE: 04/13/24 SPIROMETRY: FEV1 is 130 % predicted and an FVC ??is 113 % predicted. The FEV1/FVC ratio is 112% of normal, no response to bronchodilators noted. LUNG VOLUMES: Total lung capacity (TLC): 99% predicted. Residual volume (RV): 84% predicted RV/TLC ratio is 86% of normal DIFFUSION CAPACITY: DLCO 107% predicted. INTERPRETATION: This pulmonary function test shows normal spirometry and diffusion. ??There is no evidence of lung disease based on this PFT ??Felicia Duvall MD ?? Susan Castillo MD PFT ORDERABLES Final Result * CT Chest wo Contrast (04/07/2024 3:33 PM EST) Anatomical Region Laterality Modality Body Computed Tomogra phy 04/07/2024 5:36 PM EST Impressions 04/07/2024 5:42 PM EST No acute findings in the chest. -------- FINAL REPORT -------- Dictated By: Lloyd Moreno Dictated Date: 04/07/2024 17:36 ET Assigned Physician: Lloyd Moreno Reviewed and Electronically Signed By: Lloyd Moreno Signed Date: 04/07/2024 17:42 ET Workstation ID: [id number] Transcribed By: Self Edit Transcribed Date: 04/07/2024 17:36 ET Narrative 04/07/2024 5:42 PM EST PROCEDURE: CT CHEST WITHOUT CONTRAST INDICATION: Respiratory illness, nondiagnostic xray TECHNIQUE: Chest CT without contrast. Multi planar reformats were created and interpreted. The examination was performed utilizing dose reduction techniques. COMPARISON: ??No priors available. FINDINGS: LUNGS/PLEURA: Central airways are patent. Lungs are clear. No pleural effusion or pneumothorax. MEDIASTINUM: Thyroid gland is unremarkable. No mediastinal or hilar lymphadenopathy. Cardiac chambers are normal in size. No pericardial effusion. Esophagus is normal. CHEST WALL: No axillary lymphadenopathy or superficial hematoma. UPPER ABDOMEN:The visualized portions of the upper abdomen are unremarkable. BONES: No acute fracture. Scattered degenerative changes seen throughout the bones. Procedure Note Lloyd Moreno MD - 04/07/2024 PROCEDURE: CT CHEST WITHOUT CONTRAST INDICATION: Respiratory illness, nondiagnostic xray TECHNIQUE: Chest CT without contrast. Multi planar reformats were createdand interpreted. The examination was performed utilizing dose reductiontechniques. COMPARISON: No priors available. FINDINGS: LUNGS/PLEURA: Central airways are patent. Lungs are clear. No pleuraleffusion or pneumothorax. MEDIASTINUM: Thyroid gland is unremarkable. No mediastinal or hilarlymphadenopathy. Cardiac chambers are normal in size. No pericardialeffusion. Esophagus is normal. CHEST WALL: No axillary lymphadenopathy or superficial hematoma. UPPER ABDOMEN:The visualized portions of the upper abdomen areunremarkable. BONES: No acute fracture. Scattered degenerative changes seen throughoutthe bones. IMPRESSION: No acute findings in the chest. -------- FINAL REPORT -------- Dictated By: Lloyd Moreno Dictated Date: 04/07/2024 17:36 ET Assigned Physician: Lloyd Moreno Reviewed and Electronically Signed By: Lloyd Moreno Signed Date: 04/07/2024 17:42 ET Workstation ID: [id number] Transcribed By: Self Edit Transcribed Date: 04/07/2024 17:36 ET Susan Castillo MD IM CT PROCEDURES Final Result * (ABNORMAL) Drug abuse screen expanded with reflex confirmation, urine (04/05/2024 8:38 AM EST) Amphetamine Screen, Ur Negative Negative LAB CHEMISTRY METHOD 5 10:45 AM [facility] Comment:Certain OTC medicati ons containing ephedrine, phenylephrine, pseudoephedrine and phenylpropanolamine can cause false positive results. Barbiturate Screen, Ur Negative Negative LAB CHEMISTRY METHOD 5 10:45 AM [facility] Benzodiazepine Screen, Ur Negative Negative LAB CHEMISTRY METHOD 5 10:45 AM [facility] Cocaine Screen, Ur Negative Negative LAB CHEMISTRY METHOD 5 10:45 AM [facility] Opiate Screen, Ur Negative Negative LAB CHEMISTRY METHOD 5 10:45 AM [facility] Cannabinoid (THC) Screen, Ur Negative Negative LAB CHEMISTRY METHOD 5 10:45 AM [facility] Comment:Specimens from patie nts taking pantoprazole sodium (Protonix) have been shown to produce false positive results. Fentanyl, Ur Negative Negative LAB CHEMISTRY METHOD 10:45 AM EST [facility] Oxycodone Screen, Ur Positive(A ) Negative LAB CHEMISTRY METHOD 10:45 AM EST [facility] Urine Urine specimen obtained by clean catch procedure / Unknown Non-blood Collection / Unknown 04/05/2024 8:38 AM EST 04/05/2024 8:38 AM EST Narrative [facility] - 04/05/2024 10:45 AM EST Assay cutoffs: Amphetamines ? 1000 ng/mL Barbiturates ?200 ng/mL Benzodiazepines ?? 200 ng/mL Cocaine ? 300 ng/mL Fentanyl ?1 ng/mL Opiates ? 300 ng/mL Oxycodone ? 100 ng/mL THC ?50 ng/mL Semi-quantitative assay for screening purposes only. Unconfirmed screening result should not be used for non-medical purposes. *POSITIVE RESULTS ARE AUTOMATICALLY SENT FOR ALTERNATE METHOD CONFIRMATION* Lorie Samuel MD LAB URINE ORDERA BLES Final Result [facility] [address] [place] [address], [place] [phone] * Opiates confirmation, urine (04/05/2024 8:38 AM EST) Morphine Confirm, Urine Negative ng/mL 04/07/2024 7:14 PM EST [facility] Codeine Confirm, Urine Negative ng/mL 04/07/2024 7:14 PM EST [facility] Hydrocodone Confirm, Urine Negative ng/mL 04/07/2024 7:14 PM EST [facility] Hydromorphone Confirm, Urine Negative ng/mL 04/07/2024 7:14 PM EST [facility] Oxycodone Confirm, Urine 129 ng/mL 04/07/2024 7:14 PM EST [facility] Oxymorphone Confirm, Urine 627 ng/mL 04/07/2024 7:14 PM EST [facility] Creatinine 179 20 - 250 mg/dL 04/07/2024 7:14 PM EST [facility] Adulterants Negative 04/07/2024 7:14 PM EST [facility] Comment: ? Confirmation (LC/MS/MS) Decision Limits ?Morphine ?25 ng/mL ?Codeine ? 25 ng/mL ?Hydrocodone ? 25 ng/mL ?Hydromorphone ? 25 ng/mL ?Oxycodone ? 25 ng/mL ?Oxymorphone ? 25 ng/mL ?Adulterant Decision Limit: ? General Oxidants ? 200 ug/mL ?The adulterant assay tests for General Oxidants, ??including Chromates and Nitrites. ??Adulterants are ??substances either ingested or added directly to a ??urine specimen to prevent the detection of drug use. If applicable, any drug confirmation testing reported here was developed and the performance characteristics determined by [facility]. This confirmation testing has not been cleared or approved by the FDA. The laboratory is regulated under CLIA as qualified to perform high-complexity testing. This test is used for patient testing purposes. It should not be regarded as investigational or for research. Test performed at [facility], [address], [place], [place] ??[address] ? [phone] Melody Mansfield MD, PhD - Building Economist Urine Urine specimen obtained by clean catch procedure / Unknown Non-blood Collection / Unknown 04/05/2024 8:38 AM EST 04/05/2024 10:45 AM EST Lorie Samuel MD LAB URINE ORDERA BLES Final Result [facility] [address] [place] [address] * Lipid panel with reflex to direct LDL (04/05/2024 8:38 AM EST) Cholesterol 121 0 - 200 mg/dL LAB CHEMISTRY METHOD 04/05/2024 10:26 AM [facility] Triglycerides 65 0 - 150 mg/dL LAB CHEMISTRY METHOD 04/05/2024 10:26 AM [facility] HDL 43 >=40 mg/dL LAB CHEMISTRY METHOD 04/05/2024 10:26 AM [facility] LDL Calculated 65 0 - 100 mg/dL LAB CHEMISTRY METHOD 04/05/2024 10:26 AM [facility] VLDL Cholesterol David 13 mg/dL LAB CHEMISTRY METHOD 04/05/2024 10:26 AM [facility] Non HDL Chol. (LDL+VLDL) 78 <145 mg/dL LAB CHEMISTRY METHOD 04/05/2024 10:26 AM [facility] Chol/HDL Ratio 2.8 0.0 - 4.4 LAB CHEMISTRY METHOD 04/05/2024 10:26 AM [facility] Blood Venous blood specimen / Unknown Venipuncture / Unknown 04/05/2024 8:38 AM EST 04/05/2024 8:38 AM EST Lorie Samuel MD LAB BLOOD ORDERA BLES Final Result [facility] [address] [place] [address], [place] [phone] * (ABNORMAL) CBC auto differential (04/05/2024 8:38 AM EST) WBC 7.5 4.8 - 10.8 K/mcL LAB HEMETOLOGY METHOD 04/05/2024 10:24 AM [facility] RBC 5.70(H) 4.50 - 5.50 M/mcL LAB HEMETOLOGY METHOD 04/05/2024 10:24 AM [facility] Hemoglobin 15.6 13.5 - 17.5 g/dL LAB HEMETOLOGY METHOD 04/05/2024 10:24 AM [facility] Hematocrit 48.6 42.0 - 54.0 % LAB HEMETOLOGY METHOD 04/05/2024 10:24 AM [facility] MCV 85.9 79.0 - 98.0 FL LAB HEMETOLOGY METHOD 04/05/2024 10:24 AM [facility] MCH 27.6 27.0 - 32.0 pcg LAB HEMETOLOGY METHOD 04/05/2024 10:24 AM [facility] MCHC 32.1 32.0 - 37.0 g/dL LAB HEMETOLOGY METHOD 04/05/2024 10:24 AM [facility] RDW 13.8 11.0 - 15.0 % LAB HEMETOLOGY METHOD 04/05/2024 10:24 AM [facility] Platelets 184 130 - 400 K/mcL LAB HEMETOLOGY METHOD 04/05/2024 10:24 AM [facility] MPV 11.0 7.0 - 11.0 FL LAB HEMETOLOGY METHOD 04/05/2024 10:24 AM [facility] NRBC 0.0 <1.0 % LAB HEMETOLOGY METHOD 04/05/2024 10:24 AM [facility] NRBC Absolute 0.00 <0.10 K/mcL LAB HEMETOLOGY METHOD 04/05/2024 10:24 AM [facility] Neutrophils Relative 63.3 % LAB HEMETOLOGY METHOD 04/05/2024 10:24 AM [facility] Lymphocytes Relative 22.4 % LAB HEMETOLOGY METHOD 04/05/2024 10:24 AM [facility] Monocytes Relative 11.1 % LAB HEMETOLOGY METHOD 04/05/2024 10:24 AM [facility] Eosinophils Relative 2.0 % LAB HEMETOLOGY METHOD 04/05/2024 10:24 AM [facility] Basophils Relative 0.9 % LAB HEMETOLOGY METHOD 04/05/2024 10:24 AM [facility] Immature Granulocytes Relative 0.3 % LAB HEMETOLOGY METHOD 04/05/2024 10:24 AM [facility] Neutrophils Absolute 4.77 1.50 - 7.00 K/mcL LAB HEMETOLOGY METHOD 04/05/2024 10:24 AM [facility] Lymphocytes Absolute 1.69 1.00 - 5.00 K/mcL LAB HEMETOLOGY METHOD 04/05/2024 10:24 AM [facility] Monocytes Absolute 0.84 0.20 - 1.00 K/mcL LAB HEMETOLOGY METHOD 04/05/2024 10:24 AM [facility] Eosinophils Absolute 0.15 0.00 - 0.50 K/mcL LAB HEMETOLOGY METHOD 04/05/2024 10:24 AM [facility] Basophils Absolute 0.07 0.00 - 0.20 K/[facility] HEMETOLOGY METHOD 04/05/2024 10:24 AM [facility] Immature Granulocytes Absolute 0.02 0.00 - 0.03 K/[facility] HEMETOLOGY METHOD 04/05/2024 10:24 AM [facility] Blood Venous blood specimen / Unknown Venipuncture / Unknown 04/05/2024 8:38 AM EST 04/05/2024 8:38 AM EST Lorie Samuel MD LAB BLOOD ORDERA BLES Final Result Performing Organization Address City/[facility]/ZIP Co de Phone Number [facility] [address] [place] [address], [place] [phone] * Hemoglobin A1c (04/05/2024 8:38 AM EST) Hemoglobin A1C 5.8 <6.5 % LAB CHEMISTRY METHOD 04/05/2024 2:05 PM [facility] Mean Bld Glu Estim. 120 mg/dL LAB CHEMISTRY METHOD 04/05/2024 2:05 PM [facility] Blood Venous blood specimen / Unknown Venipuncture / Unknown 04/05/2024 8:38 AM EST 04/05/2024 8:38 AM EST Lorie Samuel MD LAB BLOOD ORDERA BLES Final Result [facility] [address] [place] [address], [place] [phone] * Comprehensive metabolic panel (04/05/2024 8:38 AM EST) Sodium 138 133 - 145 mmol/L LAB CHEMISTRY METHOD 04/05/2024 10:26 AM [facility] Potassium 4.4 3.5 - 5.5 mmol/L LAB CHEMISTRY METHOD 04/05/2024 10:26 AM [facility] Chloride 105 96 - 110 mmol/L LAB CHEMISTRY METHOD 04/05/2024 10:26 AM [facility] CO2 26 21 - 32 mmol/L LAB CHEMISTRY METHOD 04/05/2024 10:26 AM [facility] Anion Gap 7 3 - 11 LAB CHEMISTRY METHOD 04/05/2024 10:26 AM [facility] Glucose 94 70 - 100 mg/dL LAB CHEMISTRY METHOD 04/05/2024 10:26 AM [facility] BUN 14 5 - 25 mg/dL LAB CHEMISTRY METHOD 04/05/2024 10:26 AM [facility] Creatinine 0.93 0.70 - 1.30 mg/dL LAB CHEMISTRY METHOD 04/05/2024 10:26 AM [facility] eGFR 87 >=60 mL/min/1. 73m2 LAB CHEMISTRY METHOD 04/05/2024 10:26 AM [facility] Comment:Calculation based on the??Chronic Kidney Disease Epidemiology Collaboration (CKD-EPI) equation refit??without adjustment for race. BUN/Creatinine Ratio 15.1 LAB CHEMISTRY METHOD 04/05/2024 10:26 AM [facility] Calcium 8.9 8.5 - 10.5 mg/dL LAB CHEMISTRY METHOD 04/05/2024 10:26 AM [facility] AST (SGOT) 18 10 - 42 unit/L LAB CHEMISTRY METHOD 04/05/2024 10:26 AM [facility] ALT (SGPT) 38 10 - 60 unit/L LAB CHEMISTRY METHOD 04/05/2024 10:26 AM [facility] Alkaline Phosphatase 60 42 - 121 unit/L LAB CHEMISTRY METHOD 04/05/2024 10:26 AM [facility] Total Protein 7.1 6.0 - 8.0 g/dL LAB CHEMISTRY METHOD 04/05/2024 10:26 AM EST [facility] Albumin 3.9 3.2 - 5.0 g/dL LAB CHEMISTRY METHOD 04/05/2024 10:26 AM EST [facility] Total Bilirubin 0.9 0.0 - 1.4 mg/dL LAB CHEMISTRY METHOD 04/05/2024 10:26 AM EST [facility] Blood Venous blood specimen / Unknown Venipuncture / Unknown 04/05/2024 8:38 AM EST 04/05/2024 8:38 AM EST Lorie Samuel MD LAB BLOOD ORDERA BLES Final Result [facility] [address] [place] [address], * Falls Risk Assessment (05/07/2023) Falls Risk Assessment Abstracted Historical Provider HEALTH MAINTENANCE Final Result * Depression Screening (05/07/2023) Depression Screening Abstracted Historical Provider HEALTH MAINTENANCE Final Result * Abdominal Aortic Aneurysm Screen (07/23/2021) Abdominal Aortic Aneurysm (AAA) Screening Abstracted Anatomical Region Laterality Modality Other Historical Provider HEALTH MAINTENANCE Final Result * Colonoscopy (05/01/2021) Colonoscopy No Interpretation , Abstracted Anatomical Region Laterality Modality Other Historical Provider HEALTH MAINTENANCE Final Result from Last 3 Months or Most Recently Relevant to Health Maintenance Insurance [employer] Care Teams Firmware Engineer Relationship Specialty Start Date End Date Lorie Samuel MD [address] [place], [place] PCP - General Internal Medicine 12/02/21
--- OUTSIDE RECORDS SUMMARY | 2024-06-03 11:23 | XMS_ITS | Encounter Summary ---
Author Organization [facility] Address [address] [place] [address] Care Team Providers Care Medical Technologist Clinical Name Role Phone Lorie Samuel MD Primary Care Pr ovider Encounter Details Date Type Department Care Team (Late st Contact Info) Description 06/03/2024 Telephone Adult Medicine [address] [phone] Lyric Lagos [place] Social History Tobacco Use Types Packs/Day Years [...] care for your loved ones. For example, early childhood specialist or elderly care for an older adult? 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[employer] [employer] documented in this encounter Plan of Treatment Upcoming Encounters Date Type Department Care Team (Late st Contact Info) Description 06/15/2024 7:00 AM EDT Ancillary Procedure [facility] [address] [place] [address] 07/04/2024 8:00 AM EDT Office Visit Pulmonolgy - [place] [address] [phone] Susan Castillo MD [address] [address] 07/04/2024 3:30 PM EDT Office Visit Adult Medicine [facility] [address] [place] [address] Lorie Samuel MD [address] [place] [address] 08/17/2024 12:30 PM EDT Appointment [facility] [address] [place] [phone] Hakeem Duran MD [address] [address] documented as of this encounter Visit Diagnoses Not on filedocumented in this encounter Additional Health Concerns Assessment Noted Time PHQ-9 Depression Total Score: 0 05/05/19 25 9:57 AM EST A fall risk assessment has been complete d for the patient 05/04/2024 9:57 AM EST documented as of this encounter Care Teams Medical Technologist Clinical Relationship Specialty Start Date End Date Lorie Samuel MD [address] [facility] [place], [place] PCP - General Internal Medicine 12/02/21 documented as of this encounter
--- OUTSIDE RECORDS SUMMARY | 2024-06-03 11:24 | XMS_ITS | Encounter Summary ---
Author Organization [facility] Address [address] [place] [address] Care Team Providers Care Equities Trader Name Role Phone Lorie Samuel MD Primary Care Pr ovider Reason for Visit * Reason Onset Date Comments Letter for School/Work 06/02/2024 Jury Duty Encounter Details Date Type Department Care Team (Late st Contact Info) Description 06/02/2024 Telephone Adult Medicine [address] [phone] Lorie Samuel MD [address] [place] [phone] Letter for School/Work (Jury Duty) Social History Tobacco Use Types Packs/Day Years [...] Record ed Within the last 3 months, jeffrey wiley many times did you visit the emergency [...] for your loved ones. For example, child advocate or elderly care for an older adult? [...] as of this encounter Progress Notes * Lorie Samuel MD - 06/02/2024 5:34 PM EDT Letter in outbasket * Blanca Clancy - 06/02/2024 8:19 AM EDT Letter Request Call: Who is requesting the letter?: The patient Reason for letter: Jury Duty Specific notations needed in body of letter: Patient is looking for a letter excusing him from juryduty due to leg and back pain. Badge #: [id number] Date: Friday, September 13, 2024 @8 am Date needed for completion: NESS When completed: Will corn picker-call when completed: documented in this encounter Plan of Treatment Upcoming Encounters Date Type Department Care Team (Late st Contact Info) Description 06/15/2024 7:00 AM EDT Ancillary Procedure [facility] [address] [phone] 07/04/2024 8:00 AM EDT Office Visit Pulmonol - [place] [address] [phone] Susan Castillo MD [address] [address] 07/04/2024 3:30 PM EDT Office Visit Adult Medicine [facility] [address] [place] [address] Lorie Samuel MD [address] [place] [address] 08/17/2024 12:30 PM EDT Appointment [facility]oscopy [address] [place] [phone] Hakeem Duran MD [address] [address] documented as of this encounter Visit Diagnoses Not on filedocumented in this encounter Additional Health Concerns Assessment Noted Time PHQ-9 Depression Total Score: 0 05/05/19 9:57 AM EST A fall risk assessment has been complete d for the patient 05/04/2024 9:57 AM EST documented as of this encounter Care Teams Equities Trader Relationship Specialty Start Date End Date Lorie Samuel MD [address] [place] [address] PCP - General Internal Medicine 12/02/21 documented as of this encounter
== END 2024-06-03 10:50 | disposition home or self-care (01) ==
LOC: HO.PMC 10:04
PROVIDERS: PCP Family Medicine; Visit Provider Internal Medicine
DX: M25.561 Pain in right knee (principal); G89.29 Other chronic pain; Z96.651 Presence of right artificial knee joint
CPT/HCPCS: 99204

== ENCOUNTER → 2024-06-03 10:04 | Outpatient (BNVA) | payer MEDICARE, SELFPAY | PROVIDERS: PCP Family Medicine; Visit Provider Internal Medicine | DX: M25.561 Pain in right knee (principal); G89.29 Other chronic pain; Z96.651 Presence of right artificial knee joint | CPT/HCPCS: 99202 ==

== ENCOUNTER 2024-06-13 08:18 | Outpatient (AMB) | payer MEDICARE, SELFPAY ==
--- OUTSIDE RECORDS SUMMARY | 2024-06-13 08:39 | XMS_ITS | Clinical Summary ---
Author Organization [facility] [address] [place] [address] [place] [phone] Phone Care Team Providers Care Line Installation Supervisor Name Role Phone Lorie Samuel MD Primary Care Pr ovider Allergies Active Allergy Reactions Criticality Noted Date Comments Fruit Extracts 03/15/2014 Nut - Unspecified 03/15/2014 Nutritional Supplement-Fiber 025 Other 03/15/2014 [place] 05/04/2024 [place] 03/28/2024 [place] 03/28/2024 [place] 03/28/2024 Medications fluticasone propionate (FLONASE) 50 mcg/actuation nasal spray 1 [place] by Nasal route 2 times daily., Disp-48 [...] day for 10 days. 20 each 05/05/19 025 Active Problems Problem Noted Date Diagnosed Date Chronic hepatitis C without hepatic coma (CMS/HCC V24, CMS/HCC V28) 05/10/2024 Overview (05/10/2024): HCV viral load negative Latent [...] left hand. He has mild left hand underbaster weakness and perhaps trace weakness in the left triceps but otherwise his motor exam is within normal limits. His MRI of the cervical spine from [facility] on May 26, 2023 reveals [...] An EMG and nerve conduction study from [facility] in 2018 revealed evidence of a [...] Glenoid labrum tear 03/16/2019 Severe obesity (BMI 35.0-39. 9) with comorbidity (CMS/HCC V24, CMS/HCC V28) 08/17/2017 Assessment & Plan (04/04/2024 6:09 PM [...] not using it Supply letter given to [facility] care to fax. Return to clinic in [...] which is ordered. Reportedly Pending appt with [place] pain management. Heartburn 03/15/2014 Overview (12/14/2023): EGD in 2011 or 2012 Benign prostatic hyperplasia with nocturia 03/15 Urinary incontinence 03/15/2014 Overview (12/14/2023): Bladder hyperactivity; followed by urology Encounters Date Type Department Care Team Description 06/03/2024 Telephone Adult Medicine [address] [phone] Lyric Lagos MA 06/02/2024 Telephone Adult Medicine [address] [phone] Lorie Samuel MD Letter for School/Work (Jury Duty) 05/25/2024 Telephone Infectious Disease [address] [phone] Daniela Hart MA 05/24/2024 1:30 PM EDT Consult Infectious Disease [address] [phone] Estephanie Gooden MD History of syphilis (Primary Dx); Dysuria 05/12/2024 Telephone Pulmonolgy [address] [phone] Daniela Hart MA 05/06/2024 Telephone Adult Medicine [address] [phone] Lorie Samuel MD 05/04/2024 9:45 AM EST Office Visit Adult Medicine [address] [phone] Lorie Samuel MD Herpes simplex infection of penis (Primary Dx); Dysuria; Colon cancer screening; Encounter for screening for HIV 05/03/2024 Nurse Triage Adult Medicine [address] [phone] Lorie Samuel MD Groin Rash 04/13/2024 9:00 AM EST Ancillary Procedure Pulmongy [facility] [address] [phone] Chronic obstructive pulmonary disease, unspecified COPD type (CMS/HCC V24, CMS/HCC V28) 04/07/2024 3:21 PM EST - 04/07/2024 11:59 PM EST Hospital Encounter [facility] CT Scan [address] [place] [phone] Dyspnea, unspecified type Discharge Disposition: Home or Self Care 04/04/2024 5:00 PM EST Office Visit Adult Medicine [address] [phone] Lorie Samuel MD 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 Dx); Osteoarthritis of thoracic spine with myelopathy; Encounter for long-term (current) use of high-risk medication; HTN (hypertension), benign; Cerebral microvascular disease; Atherosclerosis of both carotid arteries; Dyslipidemia; Prediabetes; Severe obesity (BMI 35.0-39.9) with comorbidity (CMS/HCC V24, CMS/HCC V28); Other non-recurrent acute nonsuppurative otitis media of right ear; Systolic murmur 03/28/2024 9:00 AM EST [facility] [address] [phone] Susan Castillo MD MAC (obstructive sleep apnea) (Primary Dx); Chronic obstructive pulmonary disease, unspecified COPD type (CMS/HCC V24, CMS/HCC V28); Dyspnea, unspecified type; Other fatigue from Last [...] HERNIA REPAIR/ING UPPER GASTROINTESTINAL ENDOSCOPY 09/07/2008 PROCEDURE: RI UPPER GI ENDOSCOPY PERFORMED; COMMENT: [facility]; esophagus normal, gastritis. Biopsy for rapid tissue urease testing positive for H. pylori that was subsequently treated. UPPER GASTROINTESTINAL ENDOSCOPY 09/27/2009 PROCEDURE: RI UPPER GI ENDOSCOPY PERFORMED; COMMENT: [facility]; esophagus normal, biopsy of gastritis for rapid tissue urease testing. UPPER GASTROINTESTINAL ENDOSCOPY 05/18/2012 PROCEDURE: RI UPPER GI ENDOSCOPY PERFORMED; COMMENT: [facility], esophagus normal, patchy erythema of stomach biopsied, rapid tissue urease testing performed. TOTAL KNEE ARTHROPLASTY PROCEDURE: RI ARTHRP KNE CONDYLE&PLATU MEDIAL&LAT COMPARTMENTS; COMMENT: right COLONOSCOPY 06/13/2020 N/A PROCEDURE: HISTORICAL COLONOSCOPY; COMMENT: 3 cm sessile mass lesion in the cecum adjacent to the appendix, pathology: SHOULDER SURGERY 08/2020 Left PROCEDURE: HISTORICAL SHOULDER SURGERY OTHER SURGICAL HISTORY 04/18/2021 Right PROCEDURE: ---- OTHER ----; COMMENT: colectomy OTHER SURGICAL HISTORY 06/19/2022 PROCEDURE: RI ANES LWR ABD VENTRAL & INCISIONAL HERNIA [...] for your loved ones. For example, child care attendant school or elderly care for an older adult? [...] Description 06/15/2024 7:00 AM EDT Ancillary Procedure [facility] [address] [facility] [address] [place] [phone] 07/04/2024 8:00 AM EDT Office Visit Pulmonolgy - [place] [address] [phone] Susan Castillo MD [address] [phone] 07/04/2024 3:30 PM EDT Office Visit Adult Medicine [facility] [address] [place] [phone] Lorie Samuel MD [address] [place] [address] 08/17/2024 12:30 PM EDT Appointment [facility] [address] [place] [phone] Hakeem Duran MD [address] [address] Health Maintenance Due Date Last Done Comments [...] age to complete this topic Meningococcal B Vaccine Aged Out No l onger eligible based on patient's age to complete [...] Chronic obstructive pulmonary disease, unspecified COPD type (CMS/HCC V24, CMS/HCC V28) CT CHEST WO CONTRAST Routine 04/07/2024 3:33 [...] Seen None Seen 05/24/2024 4:23 PM EDT [facility] Urine Urine specimen obtained by clean catch procedure / Unknown Non-blood Collection / Unknown 05/24/2024 2:05 PM EDT 05/24/2024 2:44 PM EDT us Estephanie Gooden MD LAB MICROBIOLOGY - GENERAL ORDER JAYASHREE Final Result [facility] [address] [place] [address], [place] [phone] * Chlamydia trachomatis and Neisseria gonorrhoeae molecular study (05/24/2024 2:05 PM EDT) Pathologist [facility] Neisseria gonorrhoeae PCR Negative Negative LAB MOLECULAR DIAGNOSTICS METHOD 05/25/2024 9:13 AM EDT [facility] Chlamydia trachomatis PCR Negative Negative LAB MOLECULAR DIAGNOSTICS METHOD 05/25/2024 9:13 AM EDT [facility] Swab Urine specimen obtained by clean catch procedure / Unknown Non-blood Collection / Unknown 05/24/2024 2:05 PM EDT 05/24/2024 2:43 PM EDT us Estephanie Gooden MD LAB MICROBIOLOGY - GENERAL ORDER JAYASHREE Final Result [facility] [address] [place] [address], [place] [phone] * Hepatitis B surface antigen with reflex to confirmation (05/24/2024 2:03 PM EDT) [facility] Hepatitis B Surface Ag Negative Negative LAB CHEMISTRY METHOD 05/24/2024 3:54 PM EDT [facility] Blood Venous blood specimen / Unknown Venipuncture / Unknown 05/24/2024 2:03 PM EDT 05/24/2024 2:43 PM EDT Narrative [facility] - 05/24/2024 3:54 PM EDT Over the counter supplements containing high doses of biotin may interfere with this assay. ??If interference is suspected, patients shoud be retested after refraining from biotin supplements for 72 hours. us Estephanie Gooden MD LAB BLOOD ORDERABLES Final Resul t Performing Organization Address [facility] Co de Phone Number [facility] [address] [place] [address], * (ABNORMAL) Hepatitis C antibody (05/04/2024 3:30 PM EST) [facility] Hepatitis C Antibody Positive (A) Negative LAB CHEMISTRY METHOD 05/04/2024 7:25 PM EST [facility] Comment:If confirmation of t his positive HCV Ab screening test is needed, please redraw and order HCV Viral Load. Note--> This test may not be added on due to different specimen requirements. Blood Venous blood specimen / Unknown Venipuncture / Unknown 05/04/2024 3:30 PM EST 05/04/2024 3:30 PM EST Lorie Samuel MD LAB BLOOD ORDERA BLES Final Result Performing Organization Address [facility] Co de Phone Number [facility] [address] [place] [address], * HIV 1,2 antibody, p24 antigen with reflex to differentiation (05/04/2024 3:30 PM EST) [facility] HIV Combo AB/AG Negative Negative LAB CHEMISTRY METHOD 05/04/2024 7:26 PM EST [facility] Blood Venous blood specimen / Unknown Venipuncture / Unknown 05/04/2024 3:30 PM EST 05/04/2024 3:30 PM EST Narrative [facility] - 05/04/2024 7:26 PM EST This assay is a 4th generation assay allowing for earlier detection of HIV infection by detecting the presence of the HIV-1 p24 antigen as well as the traditional antibodies to HIV type 1 (including group O) and type 2. ??Use of a 4th generation assay is the current CDC recommendation for HIV screening. us Lorie Samuel MD LAB BLOOD ORDERA BLES Final Result Performing Organization Address City/[facility]/ZIP Co de Phone Number [facility] [address] [place] [address], [place] [phone] * AST, ALT, Bilirubin ELR state reportables (05/04/2024 3:30 PM EST) ALT (SGPT) 38 10 - 60 unit/L LAB CHEMISTRY METHOD 05/04/2024 7:49 PM EST [facility] AST (SGOT) 18 10 - 42 unit/L LAB CHEMISTRY METHOD 05/04/2024 7:49 PM EST [facility] Total Bilirubin 0.9 0.0 - 1.4 mg/dL LAB CHEMISTRY METHOD 05/04/2024 7:49 PM EST [facility] Platelets 184 K/mcL LAB HEMETOLOGY METHOD 05/04/2024 7:49 PM EST [facility] Blood Venous blood specimen / Unknown Venipuncture / Unknown 05/04/2024 3:30 PM EST 05/04/2024 3:30 PM EST Lorie Samuel MD LAB BLOOD ORDERA BLES Final Result Performing Organization Address [facility]/ZIP Co de Phone Number [facility] [address] [place] [address], [place] [phone] * (ABNORMAL) Treponema pallidum antibody with reflex to RPR and particle agglutination (05/04/2024 3:30 PM EST) T. Pallidum Antibodies Positive( A) Negative LAB CHEMISTRY METHOD 05/04/2024 6:57 PM EST [facility] Blood Venous blood specimen / Unknown Venipuncture / Unknown 05/04/2024 3:30 PM EST 05/04/2024 3:30 PM EST Lorie Samuel MD LAB BLOOD ORDERA BLES Final Result Performing Organization Address City/[facility]/ZIP Co de Phone Number [facility] [address] [place] [address], [place] [phone] * (ABNORMAL) Rapid plasma reagin titer (05/04/2024 3:30 PM EST) Pathologist [facility] Rapid Plasma Reagin Titer 1:1(A) Nonreactive 05/06/2024 9:19 AM EST [facility] Blood Venous blood specimen / Unknown Venipuncture / Unknown 05/04/2024 3:30 PM EST 05/04/2024 6:57 PM EST us Lorie Samuel MD LAB BLOOD ORDERA BLES Final Result Performing Organization Address [facility] Co de Phone Number [facility] [address] [place] [address], [place] [phone] * (ABNORMAL) Rapid plasma reagin with reflex to titer (05/04/2024 3:30 PM EST) [facility] RPR Reactive(A ) Nonreactive 05/06/2024 9:19 AM EST [facility] Blood Venous blood specimen / Unknown Venipuncture / Unknown 05/04/2024 3:30 PM EST 05/04/2024 6:57 PM EST Lorie Samuel MD LAB BLOOD ORDERA BLES Final Result Performing Organization Address City/[facility]/ZIP Co de Phone Number [facility] [address] [place] [address], [place] [phone] * Herpes simplex virus 1 and 2 molecular study, qualitative (05/04/2024 3:30 PM EST) Pathologist [facility] Specimen Source Blood, Venous 05/07/2024 11:35 AM EST [facility] Herpes simplex Virus I Not detected Not detected 05/07/2024 11:35 AM EST [facility] Herpes simplex Virus II Not detected Not detected 05/07/2024 11:35 AM EST [facility] Comment: This test utilizes a real-time [...] characteristics of this procedure were determined by [facility]. This test is performed pursuant to a license agreement with [email or web address]. Test performed at [facility], [address] , [place], [place] ??[address] ? [phone] Melody Mansfield MD, PhD - Home Stereo Equipment Installer Blood Venous blood specimen / Unknown Venipuncture / Unknown 05/04/2024 3:30 PM EST 05/04/2024 3:30 PM EST Lorie Samuel MD LAB MICROBIOLOGY - GENERAL ORDERABLES Final Result [facility] [address] [place] [address] * Hepatitis C virus quantitative molecular study (05/04/2024 3:30 PM EST) [facility] Hepatitis C Quantitation HCV Not Detected IU/mL 05/10/2024 1:05 PM EDT [facility] Test Information: Note 05/10/2024 1:05 PM EDT [facility] Comment:The quantitative ran ge of this assay is 15 IU/mL to 100 million IU/mL. Blood Venous blood specimen / Unknown Venipuncture / Unknown 05/04/2024 3:30 PM EST 05/04/2024 3:30 PM EST Narrative [facility] - 05/10/2024 1:05 PM EDT Performed at: ??01 - [facility] [address] ??[id number] Career Professional: Misti Holder MD, Phone: ??[phone] Lorie Samuel MD LAB BLOOD ORDERA BLES Final Result [facility] * Culture urine (05/04/2024 10:23 AM EST) Culture, Urine <10,000 CFU/mL gram positive cocci, insignificant count, no further workup 05/05/2024 12:36 PM EST [facility] Urine Urine specimen obtained by clean catch procedure / Unknown Non-blood Collection / Unknown 05/04/2024 10:23 AM EST 05/04/2024 11:22 AM EST Lorie Samuel MD LAB MICROBIOLOGY - GENERAL ORDERABLES Final Result Performing Organization Address City/[facility]/ZIP Co de Phone Number [facility] [address] [place] [address], [place] [phone] * (ABNORMAL) POC Urine Non-Auto W/O Micro [...] Vital Capacity Test (04/13/2024 8:45 AM EST) Impressions Felicia Duvall MD - 04/13/2024 8:45 AM EST DATE [...] Signed Date: 04/07/2024 17:42 ET Workstation ID: [id number] Transcribed By: Self Edit Transcribed Date: 04/07/2024 [...] Signed Date: 04/07/2024 17:42 ET Workstation ID: [id number] Transcribed By: Self Edit Transcribed Date: 04/07/2024 17:36 ET [facility] Eugenio Castillo MD [facility] PROCEDURES Final Result * (ABNORMAL) Drug abuse screen expanded with reflex confirmation, urine (04/05/2024 8:38 AM EST) Amphetamine Screen, Ur Negative Negative LAB CHEMISTRY METHOD 5 10:45 AM [facility] Comment:Certain OTC medicati ons containing ephedrine, phenylephrine, pseudoephedrine and phenylpropanolamine can cause false positive results. Barbiturate Screen, Ur Negative Negative LAB CHEMISTRY METHOD 5 10:45 AM [facility] Benzodiazepine Screen, Ur Negative Negative LAB CHEMISTRY METHOD 5 10:45 AM [facility] Cocaine Screen, Ur Negative Negative LAB CHEMISTRY METHOD 5 10:45 AM [facility] Opiate Screen, Ur Negative Negative LAB CHEMISTRY METHOD 10:45 AM EST [facility] Cannabinoid (THC) Screen, Ur Negative Negative LAB CHEMISTRY METHOD 10:45 AM EST [facility] Comment:Specimens from patie nts taking pantoprazole sodium (Protonix) have been shown to produce false positive results. Fentanyl, Ur Negative Negative LAB CHEMISTRY METHOD 10:45 AM EST [facility] Oxycodone Screen, Ur Positive(A ) Negative LAB CHEMISTRY METHOD 10:45 AM [facility] Urine Urine specimen obtained by clean catch procedure / Unknown Non-blood Collection / Unknown 04/05/2024 8:38 AM EST 04/05/2024 8:38 AM EST [facility] - 04/05/2024 10:45 AM EST Assay cutoffs: Amphetamines ? 1000 ng/mL Barbiturates ?200 ng/mL Benzodiazepines ?? 200 ng/mL Cocaine ? 300 ng/mL Fentanyl ?1 ng/mL Opiates ? 300 ng/mL Oxycodone ? 100 ng/mL THC ?50 ng/mL Semi-quantitative assay for screening purposes only. Unconfirmed screening result should not be used for non-medical purposes. *POSITIVE RESULTS ARE AUTOMATICALLY SENT FOR ALTERNATE METHOD CONFIRMATION* us Lorie Samuel MD LAB URINE ORDERA BLES Final Result [facility]) [facility] [address] [place] [address], * Opiates confirmation, urine (04/05/2024 8:38 AM [...] developed and the performance characteristics determined by [facility]. This confirmation testing has not been cleared or approved by the FDA. The laboratory is regulated under CLIA as qualified to perform high-complexity testing. This test is used for patient testing purposes. It should not be regarded as investigational or for research. Test performed at [facility], [address], [place], [place] ??[address] ? [phone] Melody Mansfield MD, PhD - Home Stereo Equipment Installer Urine Urine specimen obtained by clean catch procedure / Unknown Non-blood Collection / Unknown 04/05/2024 8:38 AM EST 04/05/2024 10:45 AM EST Lorie Samuel MD LAB URINE ORDERA BLES Final Result [facility] [address] [place] [address] * Lipid panel with reflex to direct LDL (04/05/2024 8:38 AM EST) Cholesterol 121 0 - 200 mg/dL LAB CHEMISTRY METHOD 04/05/2024 10:26 AM [facility] Triglycerides 65 0 - 150 mg/dL LAB CHEMISTRY METHOD 04/05/2024 10:26 AM [facility] HDL 43 >=40 mg/dL LAB CHEMISTRY METHOD 04/05/2024 10:26 AM [facility] LDL Calculated 65 0 - 100 mg/dL LAB CHEMISTRY METHOD 04/05/2024 10:26 AM [facility] VLDL Cholesterol David 13 mg/dL LAB CHEMISTRY METHOD 04/05/2024 10:26 AM [facility] Non HDL Chol. (LDL+VLDL) 78 <145 mg/dL LAB CHEMISTRY METHOD 04/05/2024 10:26 AM [facility] Chol/HDL Ratio 2.8 0.0 - 4.4 LAB CHEMISTRY METHOD 04/05/2024 10:26 AM [facility] Blood Venous blood specimen / Unknown Venipuncture / Unknown 04/05/2024 8:38 AM EST 04/05/2024 8:38 AM EST Lorie Samuel MD LAB BLOOD ORDERA BLES Final Result [facility] [address] [place] [address], * (ABNORMAL) CBC auto differential (04/05/2024 8:38 AM EST) WBC 7.5 4.8 - 10.8 K/mcL LAB HEMETOLOGY METHOD 04/05/2024 10:24 AM [facility] RBC 5.70(H) 4.50 - 5.50 M/[facility] LAB HEMETOLOGY METHOD 04/05/2024 10:24 AM [facility] Hemoglobin 15.6 13.5 - 17.5 g/dL LAB HEMETOLOGY METHOD 04/05/2024 10:24 AM [facility] Hematocrit 48.6 42.0 - 54.0 % LAB HEMETOLOGY METHOD 04/05/2024 10:24 AM [facility] MCV 85.9 79.0 - 98.0 FL LAB HEMETOLOGY METHOD 04/05/2024 10:24 AM [facility] MCH 27.6 27.0 - 32.0 pcg LAB HEMETOLOGY METHOD 04/05/2024 10:24 AM [facility] MCHC 32.1 32.0 - 37.0 g/dL LAB HEMETOLOGY METHOD 04/05/2024 10:24 AM [facility] RDW 13.8 11.0 - 15.0 % LAB HEMETOLOGY METHOD 04/05/2024 10:24 AM [facility] Platelets 184 130 - 400 K/mcL LAB HEMETOLOGY METHOD 04/05/2024 10:24 AM [facility] MPV 11.0 7.0 - 11.0 FL LAB HEMETOLOGY METHOD 04/05/2024 10:24 AM [facility] NRBC 0.0 <1.0 % LAB HEMETOLOGY METHOD 04/05/2024 10:24 AM [facility] NRBC Absolute 0.00 <0.10 K/mcL LAB HEMETOLOGY METHOD 04/05/2024 10:24 AM [facility] Neutrophils Relative 63.3 % LAB HEMETOLOGY METHOD 04/05/2024 10:24 AM [facility] Lymphocytes Relative 22.4 % LAB HEMETOLOGY METHOD 04/05/2024 10:24 AM [facility] Monocytes Relative 11.1 % LAB HEMETOLOGY METHOD 04/05/2024 10:24 AM [facility] Eosinophils Relative 2.0 % LAB HEMETOLOGY METHOD 04/05/2024 10:24 AM [facility] Basophils Relative 0.9 % LAB HEMETOLOGY METHOD 04/05/2024 10:24 AM [facility] Immature Granulocytes Relative 0.3 % LAB HEMETOLOGY METHOD 04/05/2024 10:24 AM [facility] Neutrophils Absolute 4.77 1.50 - 7.00 K/mcL LAB HEMETOLOGY METHOD 04/05/2024 10:24 AM [facility] Lymphocytes Absolute 1.69 1.00 - 5.00 K/mcL LAB HEMETOLOGY METHOD 04/05/2024 10:24 AM [facility] Monocytes Absolute 0.84 0.20 - 1.00 K/mcL LAB HEMETOLOGY METHOD 04/05/2024 10:24 AM [facility] Eosinophils Absolute 0.15 0.00 - 0.50 K/[facility] HEMETOLOGY METHOD 04/05/2024 10:24 AM EST [facility] Basophils Absolute 0.07 0.00 - 0.20 K/[facility] HEMETOLOGY METHOD 04/05/2024 10:24 AM [facility] Immature Granulocytes Absolute 0.02 0.00 - 0.03 K/[facility] HEMETOLOGY METHOD 04/05/2024 10:24 AM [facility] Blood Venous blood specimen / Unknown Venipuncture / Unknown 04/05/2024 8:38 AM EST 04/05/2024 8:38 AM EST us Lorie Samuel MD LAB BLOOD ORDERA BLES Final Result Performing Organization Address City/[facility]/ZIP Co de Phone Number [facility] [address] [place] [address], [place] [phone] * Hemoglobin A1c (04/05/2024 8:38 AM EST) Hemoglobin A1C 5.8 <6.5 % LAB CHEMISTRY METHOD 04/05/2024 2:05 PM [facility] Mean Bld Glu Estim. 120 mg/dL LAB CHEMISTRY METHOD 04/05/2024 2:05 PM [facility] Blood Venous blood specimen / Unknown Venipuncture / Unknown 04/05/2024 8:38 AM EST 04/05/2024 8:38 AM EST us Lorie Samuel MD LAB BLOOD ORDERA BLES Final Result [facility] [address] [place] [address], [place] [phone] * Comprehensive metabolic panel (04/05/2024 8:38 AM EST) [facility] Sodium 138 133 - 145 mmol/L LAB CHEMISTRY METHOD 04/05/2024 10:26 AM [facility] Potassium 4.4 3.5 - 5.5 mmol/L LAB CHEMISTRY METHOD 04/05/2024 10:26 AM [facility] Chloride 105 96 - 110 mmol/L LAB CHEMISTRY METHOD 04/05/2024 10:26 AM [facility] CO2 26 21 - 32 mmol/L LAB CHEMISTRY METHOD 04/05/2024 10:26 AM [facility] Anion Gap 7 3 - 11 LAB CHEMISTRY METHOD 04/05/2024 10:26 AM [facility] Glucose 94 70 - 100 mg/dL LAB CHEMISTRY METHOD 04/05/2024 10:26 AM [facility] BUN 14 5 - 25 mg/dL LAB CHEMISTRY METHOD 04/05/2024 10:26 AM [facility] Creatinine 0.93 0.70 - 1.30 mg/dL LAB CHEMISTRY METHOD 04/05/2024 10:26 AM [facility] eGFR 87 >=60 mL/min/1. 73m2 LAB CHEMISTRY METHOD 04/05/2024 10:26 AM [facility] Comment:Calculation based on the??Chronic Kidney Disease Epidemiology Collaboration (CKD-EPI) equation refit??without adjustment for race. BUN/Creatinine Ratio 15.1 LAB CHEMISTRY METHOD 04/05/2024 10:26 AM [facility] Calcium 8.9 8.5 - 10.5 mg/dL LAB CHEMISTRY METHOD 04/05/2024 10:26 AM [facility] AST (SGOT) 18 10 - 42 unit/L LAB CHEMISTRY METHOD 04/05/2024 10:26 AM [facility] ALT (SGPT) 38 10 - 60 unit/L LAB CHEMISTRY METHOD 04/05/2024 10:26 AM [facility] LAB Alkaline Phosphatase 60 42 - 121 unit/L LAB CHEMISTRY METHOD 04/05/2024 10:26 AM EST [facility] Total Protein 7.1 6.0 - 8.0 g/dL LAB CHEMISTRY METHOD 04/05/2024 10:26 AM EST [facility] Albumin 3.9 3.2 - 5.0 g/dL LAB CHEMISTRY METHOD 04/05/2024 10:26 AM [facility] Total Bilirubin 0.9 0.0 - 1.4 mg/dL LAB CHEMISTRY METHOD 04/05/2024 10:26 AM EST [facility] Blood Venous blood specimen / Unknown Venipuncture / Unknown 04/05/2024 8:38 AM EST 04/05/2024 8:38 AM EST Lorie Samuel MD LAB BLOOD ORDERA BLES Final Result [facility] [address] [place] [address], [place] [phone] * Falls Risk Assessment (05/07/2023) [facility] [place] Risk Assessment Abstracted [facility] Provider HEALTH MAINTENANCE Final Result * Depression Screening (05/07/2023) Pathologist [facility] Depression Screening Abstracted [facility] Provider HEALTH MAINTENANCE Final Result * Abdominal Aortic Aneurysm Screen (07/23/2021) Pathologist [facility] Abdominal Aortic Aneurysm (AAA) Screening Abstracted Anatomical Region Laterality Modality Other [facility] Provider HEALTH MAINTENANCE Final Result * Colonoscopy (05/01/2021) Pathologist [facility] Colonoscopy No Interpretation , Abstracted Anatomical Region Laterality Modality Other Historical Provider HEALTH MAINTENANCE Final Result from Last 3 Months or Most Recently Relevant to Health Maintenance Insurance [employer] MED[employer]ARE Care Teams Line Installation Supervisor Relationship Specialty Start Date End Date Lorie Samuel MD [address], [place] PCP - General Internal Medicine 12/02/21
--- OUTSIDE RECORDS SUMMARY | 2024-06-13 08:39 | XMS_ITS | Clinical Summary ---
Author Organization [facility] Address [address] [place] [address] Care Team Providers Care Facing Slitter Name Role Phone Sofiya Seaman MD Primary Care Provider [phone] Allergies Active Allergy Reactions Criticality Noted Date [...] by mouth. 0 09/01/2019 Acti ve Aspirin Buf,[id number] , 81 MG TABS Take 81 mg [...] age to complete this topic Care Teams Facing Slitter Relationship Specialty Start Date End Date Sofiya Seaman MD PCP - General Internal Medicine 03/09/19
--- NOTE | 2024-06-13 08:50 | AM.OFFWIN_ITS ---
Intake Vital Signs 06/13/24 08:52 Weight 222 lb BP 120/82 Blood Pressure Location Lt brachial Position Sitting Pulse 50 Pulse Source Pulse Oximeter Temp 98 F Temp Source Oral Pulse Oximetry (%) 97 Oxygen Delivery Method Room Air Intake Visit Reasons: EP-rt ear pain Intake Note: Patient here for sharp right ear pain that started last night. Patient Tobacco Use Status: Former Tobacco user Allergies almond Allergy (Severe, Verified 06/13/24 08:53) SWELLING nut - unspecified [nut] Allergy (Severe, Verified 06/13/24 08:53) SWELLING peanut [Peanut] Allergy (Severe, Verified 06/13/24 08:53) SWELLING walnut Allergy (Severe, Verified 06/13/24 08:53) SWELLING strawberry [[place]] Allergy (Mild, Verified 06/13/24 08:53) UNKNOWN apple [Apple] Allergy (Unknown, Verified 06/13/24 08:53) UNKNOWN Do you need a note to return to daycare/school/sports/work: No HPI HPI Comments History of Present Illness Details 73 y/o Male patient who presents to the walk in clinic with c/o Right ear pain since yesterday afternoon. Describes the pain as Dull and ache on/off. Denies discharge or bleeding. [facility] Medical History (Updated 06/13/24 @ 09:41 by Pita Rousseau NP) Otitis external Social History (Updated 03/23/24 @ 15:01 by MENDEZ Locke) Patient Tobacco Use Status: Former Tobacco user Current occupational status: retired Current occupation: rt handed Review of Systems Const All systems reviewed & are unremarkable except as noted in HPI and below Physical Exam Vital Signs: Last Vital Signs Temp 98 F 06/13/24 08:52 Pulse 50 06/13/24 08:52 BP 120/82 06/13/24 08:52 Pulse Ox 97 06/13/24 08:52 Oxygen Delivery Method Room Air 06/13/24 08:52 Const General: no acute distress Nutritional Appearance: obese Orientation/consciousness: patient oriented x3 HEENT Head: Yes normocephalic Ears: external ears normal and TM abnormal bulging on the right, erythematous on the right and with fluid behind the TM on the left General nose exam: No nasal discharge present Neuro General: patient oriented x3 Assessment & Plan Assessment & Plan (1) Otitis external: Code(s): H60.90 - Unspecified otitis externa, unspecified ear Qualifiers: Chronicity: acute Laterality: right Otitis externa type: unspecified type Qualified Code(s): H60.501 - Unspecified acute noninfective otitis externa, right ear Plan: Ordered Abx Ear Drops. Acetaminophen for pain relief Medications: New ciprofloxacin-dexamethasone 0.3-0.1 % 4 drps otic (ears) BID 7.5 mL 0RF 7 days H60.501 - Unspecified acute noninfective otitis externa, right ear Coding Level of Care Code Est Pt Level 4 (20595) Diagnoses Acute otitis externa of right ear, unspecified type H60.501 Chronicity: acute Laterality: right Otitis externa type: unspecified type Time Spent (min) 20
[2024-06-13 08:52] VITALS: BP 120/82; PULSE 50; TEMP 36.6; O2SAT 97
== END 2024-06-13 10:47 | disposition home or self-care (01) ==
PROVIDERS: PCP Family Medicine; Visit Provider Nurse Practitioner Family
DX: H60.501 Unspecified acute noninfective otitis externa, right ear (principal)

== ENCOUNTER → 2024-06-13 08:18 | Outpatient (BNVA) | payer MEDICARE, SELFPAY | PROVIDERS: PCP Family Medicine; Visit Provider Nurse Practitioner Family | DX: H60.501 Unspecified acute noninfective otitis externa, right ear (principal) | CPT/HCPCS: 99212 ==